=== PATIENT | male | born 1945 | race Caucasian/White ===

== ENCOUNTER 2018-04-07 15:39 | Inpatient (IN) ==
--- NOTE | 2018-04-07 16:05 | Emergency Department Note ---
Disposition Clinical Impression: Esophageal cancer, Hypoxia, Generalized weakness Disposition: Admitted As Inpatient Condition: Fair General Adult HPI - General Chief complaint: ED Shortness of Breath/Dyspnea Stated complaint: CP,ZACK, CA Patient stage 4 Time Seen by Provider: 04/07/18 15:59 - History of Present Illness HPI Narrative: 72-year-old male presents from home for evaluation of lower extremity weakness as well as hypoxia. 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 At baseline, he requires no submental oxygen during the day however does use CPAP at night for his obstructive sleep apnea. This morning while on CPAP, his daughter checked his finger pulse ox which was 88%. He is had progressive weakness for the past 2 weeks such that, at this time, his difficulty in relating and holding his own weight because of his lower extremity weakness. His associated dry cough His spoke with the motor vehicle parts interpreter who recommended presents to emergency department and requested that we contact Dr. Saez typically regardless of who is on-call for oncology. Follows with Dr. Saez with [facility]. PMH: Hypertension, esophageal cancer, DM type 2 S: Positive: As above Negative:, Chills, nausea, vomiting, chest pains, palpitations, diaphoresis, unilateral weakness or confusion Pain Scale: 4 - Related Data Home Medications Medication Instructions Recorded Confirmed Allopurinol [Zyloprim] 100 mg PO DAILY 05/11/16 04/07/18 Aspirin 81 mg PO DAILY 05/11/16 04/07/18 Insulin ASPART [NovoLOG] 20 unit SQ TID 05/11/16 04/07/18 Pravastatin Sodium [Pravachol] 80 mg PO HS 05/11/16 04/07/18 Lisinopril [Zestril] 40 mg PO DAILY 05/09/17 04/07/18 Cetirizine HCl [All Day Allergy] 10 mg PO DAILY 09/16/17 04/07/18 Cholecalciferol (D-3) [Vitamin D] 1,000 unit PO DAILY 09/30/17 04/07/18 Labetalol HCl 300 mg PO BID 09/30/17 04/07/18 Previous Rx's Medication Instructions Recorded Insulin Glargine,Hum.rec.anlog 75 unit SQ HS #5 insuln.pen 10/07/17 [Lantus Solostar] Citalopram Hydrobromide 10 mg PO DAILY #30 tablet 12/27/17 [Citalopram HBr] Sucralfate [Carafate] 1 gm PO QID #120 tablet 01/29/18 Allergies Allergy/AdvReac Type Severity Reaction Status Date / Time No Known Allergies Allergy Verified 11/15/17 09:49 All systems ED: reviewed and negative except as stated. Review of Systems: As Per HPI Past Medical History - Past Medical History Medical history: Reports: cancer, diabetes, hyperlipidemia, hypertension, RA, other Surgical history: Reports: cataract, orthopedic, other, other Psychiatric history: Reports: anxiety, PTSD - Social History Smoking Status: Never smoker Smokeless Tobacco Status: No Alcohol use: Reports: none Drug use: Reports: none Physical Exam Vital Signs Reviewed General: Patient is alert, oriented, and in no acute distress. He is requiring 1 L supplemental oxygen. Head: atraumatic, normocephalic Eye: normal appearance, no scleral icterus, no conjunctival injection ENT: mucous membranes moist, normal external ear exam Neck: normal inspection, trachea midline, full ROM Chest: normal inspection, symmetric chest rise Respiratory: Good respiratory effort. Bilateral breath sounds are clear without wheezing, crackles, or rhonchi. Cardiovascular: Regular rate and rhythm. No clicks, rubs, gallops, or murmors. Normal heart sounds. Abdomen: Bowel sounds present normoactive x-4 quadrants. Abdomen is soft, nondistended, and nontender. No guarding or rebound. No organomegaly noted. Musculoskeletal: Spontaneously moving all extremities. Skin: warm, dry, intact. Neuro: Alert and oriented x4. Sensation light touch intact and equal bilateral lower extremities. Strength 5/5 in bilateral lower extremities. Psych: Patient's affect is appropriate for situation. Course Course Narrative: Concern that his weakness is secondary to his hypoxia which is secondary to his metastatic esophageal cancer. Chest x-ray and electrolytes as well as EKG and troponin. Chest x-ray appears nonfocal. CT chest for greater resolution and more definitive information. EKG dated 04/07/18 at 15:56 interpreted as sinus rhythm with a rate of 59. PO2 20, QTC 478. Left axis. Anterior fascicular block. T-wave inversions in precordial leads which are new from comparison EKG. Otherwise nonspecific ST-T changes. Compared to previous EKG dated 05/10/2016 showing new onset of T-wave inversion. CT chest concerning for both increasing metastasis as well as bilateral pneumonia. Will begin empiric antibiotic of headache and Zosyn. Cultures drawn. I discussed the above with the patient and his at bedside. They are agreeable to admission for continued pulmonary vibration management. I discussed the above with agents oncologist, Dr. Saez, as well as the on-call oncologist, Dr. Hsieh. Dr. Hsieh to see the patient on oncologic consultation. I discussed the above with the admitting hospitalist. He agrees to accept the patient for continued evaluation and management with oncology following. Chest X-Ray 04/07/18 16:13 IMPRESSION: Multifocal airspace opacities with probable small bilateral pleural effusions. Findings are suspicious for pneumonia, however edema could be a possibility. D/ / 04/07/2018 16:54:45 Lilia Armenta MD / huan Interpreting Provider: Lilia Armenta MD Chest CT 04/07/18 16:42 IMPRESSION: 1. Worsening in diffuse pulmonary metastases with innumerable small pulmonary nodules scattered throughout bilateral lungs. 2. Ground-glass and consolidative opacities in the right upper lobe may represent superimposed pneumonia. 3. Moderate-sized bilateral pleural effusions with associated airspace disease. 4. Nonspecific inflammatory changes surround the GE junction possibly related to reflux. D/ / Zeus Boyer / Zeus Boyer Interpreting Provider: Zeus Boyer Vital Signs Temperature 97.6 F 04/07/18 15:44 Pulse Rate 60 04/07/18 15:44 Respiratory Rate 24 04/07/18 15:44 Blood Pressure 136/77 04/07/18 15:44 O2 Sat by Pulse Oximetry 93 04/07/18 15:44 Temperature 98.4 F 04/07/18 23:38 Pulse Rate 70 04/07/18 23:38 Respiratory Rate 18 04/07/18 23:38 Blood Pressure 176/78 04/07/18 23:38 O2 Sat by Pulse Oximetry 92 04/07/18 23:38 Oxygen Delivery Oxygen Delivery Nasal Cannula Medical Decision Making - Lab Data Result diagrams: 04/07/18 17:10 04/07/18 17:10 Lab Results 04/07/18 04/07/18 04/07/18 Range/Units 16:57 17:10 17:10 WBC 7.9 (4.3-11.1) K/mcL RBC 4.29 (4.19-5.50) M/mcL Hgb 12.6 L (12.9-16.9) g/dL Hct 36.8 L (37.5-50.1) % MCV 85.8 (83.0-100.0) fL MCH 29.4 (28.0-33.3) pg MCHC 34.2 (31.6-35.5) g/dL RDW 12.6 (11.5-14.5) % Plt Count 200 (140-400) K/mcL MPV 9.8 (9.4-12.4) fL Immature Gran % 0.5 (0-4) % Seg Neutrophils % 65.8 % Lymphocytes % 17.8 % Monocytes % 12.2 % Eosinophils % 3.4 % Basophils % 0.3 % Neutrophils # 5.2 (1.6-8.9) K/mcL Lymphocytes # 1.4 (0.6-4.6) K/mcL Monocytes # 1.0 (0.0-1.3) K/mcL Eosinophils # 0.3 (0.0-0.6) K/mcL Basophils # 0.0 (0.0-0.2) K/mcL Sodium 127 L (136-145) mEq/L Potassium 4.6 (3.5-5.1) mEq/L Chloride 95 L (98-107) mEq/L Carbon Dioxide 26 (23-29) mEq/L BUN 24 H (8-23) mg/dL Creatinine 1.10 (0.70-1.30) mg/dL Est GFR ( Amer) > 60 (> 60) Est GFR (Non-Af Amer) > 60 (> 60) BUN/Creatinine Ratio 22 (6-26) Glucose 495 H (70-105) mg/dL Calculated Osmolality 290 (280-300) Calcium 9.1 (8.6-10.3) mg/dL Magnesium 1.6 (1.6-2.6) mg/dL Troponin I < 0.03 (< 0.04) ng/mL B-Natriuretic Peptide (Less than 100) pg/mL Urine Color Dark Yellow (Yellow) Urine Clarity Clear (Clear) Urine pH 5.5 (5.0-8.0) pH Units Ur Specific [place] 1.026 H (1.010-1.025) Urine Protein >=300 H (Neg-Trace) mg/dL Urine Glucose (UA) >=1000 H (Normal) mg/dL Urine Ketones Trace H (Negative) mg/dL Urine Blood Negative (Negative) Urine Nitrite Negative (Negative) Urine Bilirubin Small H (Negative) Urine Urobilinogen Normal (Normal) mg/dL Ur Leukocyte Esterase Negative (Negative) Urine Microscopic RBC 5-15 H (0-3) per hpf Urine Microscopic WBC 15-30 H (0-3) per hpf Ur Squamous Epith Cells Many H (None-Few) per lpf Urine Bacteria None Seen (None-Few) per hpf Hyaline Casts Moderate H (None-Few) per lpf Ur Culture Indicated? NO (NO) 04/07/18 Range/Units 17:10 WBC (4.3-11.1) K/mcL RBC (4.19-5.50) M/mcL Hgb (12.9-16.9) g/dL Hct (37.5-50.1) % MCV (83.0-100.0) fL MCH (28.0-33.3) pg MCHC (31.6-35.5) g/dL RDW (11.5-14.5) % Plt Count (140-400) K/mcL MPV (9.4-12.4) fL Immature Gran % (0-4) % Seg Neutrophils % % Lymphocytes % % Monocytes % % Eosinophils % % Basophils % % Neutrophils # (1.6-8.9) K/mcL Lymphocytes # (0.6-4.6) K/mcL Monocytes # (0.0-1.3) K/mcL Eosinophils # (0.0-0.6) K/mcL Basophils # (0.0-0.2) K/mcL Sodium (136-145) mEq/L Potassium (3.5-5.1) mEq/L Chloride (98-107) mEq/L Carbon Dioxide (23-29) mEq/L BUN (8-23) mg/dL Creatinine (0.70-1.30) mg/dL Est GFR ( Amer) (> 60) Est GFR (Non-Af Amer) (> 60) BUN/Creatinine Ratio (6-26) Glucose (70-105) mg/dL Calculated Osmolality (280-300) Calcium (8.6-10.3) mg/dL Magnesium (1.6-2.6) mg/dL Troponin I (< 0.04) ng/mL B-Natriuretic Peptide 45 (Less than 100) pg/mL Urine Color (Yellow) Urine Clarity (Clear) Urine pH (5.0-8.0) pH Units Ur Specific [place] (1.010-1.025) Urine Protein (Neg-Trace) mg/dL Urine Glucose (UA) (Normal) mg/dL Urine Ketones (Negative) mg/dL Urine Blood (Negative) Urine Nitrite (Negative) Urine Bilirubin (Negative) Urine Urobilinogen (Normal) mg/dL Ur Leukocyte Esterase (Negative) Urine Microscopic RBC (0-3) per hpf Urine Microscopic WBC (0-3) per hpf Ur Squamous Epith Cells (None-Few) per lpf Urine Bacteria (None-Few) per hpf Hyaline Casts (None-Few) per lpf Ur Culture Indicated? (NO)
[2018-04-07] MEDS ORDERED: Lidocaine OINT 35.44 GM TUBE TP ONE (16:16)
--- NOTE | 2018-04-07 16:17 | Emergency Department Note ---
Disposition Clinical Impression: Esophageal cancer, Hypoxia, Generalized weakness Disposition: Admitted As Inpatient Forms: ED Satisfaction Letter General Adult HPI - General Chief complaint: ED Shortness of Breath/Dyspnea Stated complaint: CP,ZACK, CA Patient stage 4 Time Seen by Provider: 04/07/18 15:59 Source: patient, family Limitations: no limitations - History of Present Illness Pain Scale: 4 - Related Data Home Medications Medication Instructions Recorded Confirmed Allopurinol [Zyloprim] 100 mg PO DAILY 05/11/16 03/07/18 Aspirin 81 mg PO DAILY 05/11/16 03/07/18 Insulin ASPART [NovoLOG] 20 unit SQ TID 05/11/16 03/07/18 Morris-3/Dha/Epa/Fish Oil [Fish Oil 1,000 mg PO DAILY 05/11/16 03/07/18 1,000 mg Softgel] Pravastatin Sodium [Pravachol] 80 mg PO HS 05/11/16 03/07/18 Lisinopril [Zestril] 40 mg PO DAILY 05/09/17 03/07/18 Cetirizine HCl [All Day Allergy] 10 mg PO DAILY 09/16/17 03/07/18 Fluticasone Propionate Nasal 1 spr NS DAILY 09/16/17 03/07/18 [Flonase] Cholecalciferol (D-3) [Vitamin D] 1,000 unit PO DAILY 09/30/17 03/07/18 Labetalol HCl 300 mg PO BID 09/30/17 03/07/18 Metformin HCl [Glucophage] 500 mg PO BID 09/30/17 03/07/18 DiphenhydraMINE [Benadryl] 25 mg PO HS 10/18/17 03/07/18 Previous Rx's Medication Instructions Recorded Insulin Glargine,Hum.rec.anlog 75 unit SQ HS #5 insuln.pen 10/07/17 [Lantus Solostar] Lidocaine/Prilocaine [Emla] 1 appl TP DAILY #30 gm 10/07/17 Promethazine [Phenergan] 25 mg PO Q6HR PRN #30 tablet 10/07/17 Magic Mouthwash [Magic Mouthwash 10 ml PO QID PRN #240 ml 11/01/17 BLM] Citalopram Hydrobromide 10 mg PO DAILY #30 tablet 12/27/17 [Citalopram HBr] Dicyclomine [Bentyl] 10 mg PO TID PRN #30 capsule 12/27/17 Sucralfate [Carafate] 1 gm PO QID #120 tablet 01/29/18 OxyCODONE Immed Rel [Roxicodone 5 5 mg PO Q6HR PRN 7 Days #28 tablet 03/10/18 MG] Sucralfate [Carafate] 1 gm PO QIDAC PRN #120 tablet 03/10/18 Allergies Allergy/AdvReac Type Severity Reaction Status Date / Time No Known Allergies Allergy Verified 11/15/17 09:49 Past Medical History - Past Medical History Medical history: Reports: cancer, diabetes, hyperlipidemia, hypertension, RA, other Surgical history: Reports: cataract, orthopedic, other, other Psychiatric history: Reports: anxiety, PTSD - Social History Smoking Status: Never smoker Smokeless Tobacco Status: No Alcohol use: Reports: none Drug use: Reports: none Physical Exam - General Limitations: no limitations General appearance: alert, in distress, obese Course Vital Signs Temperature 97.6 F 04/07/18 15:44 Pulse Rate 60 04/07/18 15:44 Respiratory Rate 24 04/07/18 15:44 Blood Pressure 136/77 04/07/18 15:44 O2 Sat by Pulse Oximetry 93 04/07/18 15:44 Temperature 97.6 F 04/07/18 16:06 Pulse Rate 59 04/07/18 16:06 Respiratory Rate 20 04/07/18 16:06 Blood Pressure 147/80 04/07/18 16:06 O2 Sat by Pulse Oximetry 95 04/07/18 16:13 Oxygen Delivery Oxygen Delivery Room Air Critical Care Time Critical Care Time: No Attestation Statement - Attestation Attestation: I examined this patient and my medical decision-making was reviewed with the Resident Physician. I agree with the documented findings, disposition and treatment plan as described except to the extent set forth below. 72-year-old male presents emergency room for generalized weakness. States been declining over the past 2-[address] is unable to even get around well at home. He currently is under treatment for esophageal cancer with lung metastasis. He is getting chemotherapy and radiation therapy. His last treatments were proximal pickup weeks ago. He admits it is getting more and more weak. He does not wear home oxygen. The family states they have been checking his oxygen levels when he wears a CPAP at night and noticed his oxygen levels to be low below 90%. I suspect his been hypoxic for a while and that is contributing to his fatigue and generalized weakness. He does not have a COPD or smoking history. The family and mentioned that he had lung metastasis from the esophageal cancer. That could also be contributing to his hypoxia. Patient will be worked up for generalized weakness in the setting of esophageal cancer. Patient will likely need to be admitted. I feel he will meet criteria for home oxygen.
[2018-04-07] MEDS ORDERED: Isovue-370 500 ML INFUS..BTL IV ONE (16:42)
[2018-04-07 17:07] LABS: Bilirubin,Urine Small (Negative); Blood,Urine Negative (Negative); Clarity,Urine Clear (Clear); Color,Urine Dark Yellow (Yellow); Glucose,Urine (UA) >=1000 mg/dL (Normal); Ketones,Urine Trace mg/dL (Negative); Leukocyte Esterase,Urine Negative (Negative); Nitrite,Urine Negative (Negative); PH,Urine 5.5 pH Units (5.0-8.0); Protein,Urine >=300 mg/dL (Neg-Trace); Specific Gravity,Urine 1.026 (1.010-1.025); Urobilinogen,Urine Normal (Normal)
[2018-04-07 17:09] LABS: Bacteria,Urine None Seen per hpf (None-Few); Hyaline Casts,Urine Moderate per lpf (None-Few); Squamous Epithelial Cell,Urine Many per lpf (None-Few); WBC,Urine 15-30 per hpf (0-3)
[2018-04-07 17:20] LABS: Basophils % 0.3 %; Eosinophils # 0.3 K/mcL (0.0-0.6); Eosinophils % 3.4 %; Hematocrit 36.8 % (37.5-50.1); Hemoglobin 12.6 g/dL (12.9-16.9); Immature Granulocytes % 0.5 % (0-4); Lymphocytes # 1.4 K/mcL (0.6-4.6); Lymphocytes % 17.8 %; Mean Corpuscular HGB Conc 34.2 g/dL (31.6-35.5); Mean Corpuscular Hemoglobin 29.4 pg (28.0-33.3); Mean Corpuscular Volume 85.8 fL (83.0-100.0); Mean Platelet Volume 9.8 fL (9.4-12.4); Monocytes % 12.2 %; Neutrophils # 5.2 K/mcL (1.6-8.9); Platelet Count 200 K/mcL (140-400); Red Blood Count 4.29 M/mcL (4.19-5.50); Red Cell Distribution Width 12.6 % (11.5-14.5); Segmented Neutrophils % 65.8 %
[2018-04-07 17:46] LABS: BUN/Creatinine Ratio 22 (6-26); Blood Urea Nitrogen 24 mg/dL (8-23); Calcium 9.1 mg/dL (8.6-10.3); Carbon Dioxide 26 mEq/L (23-29); Chloride 95 mEq/L (98-107); Glucose 495 mg/dL (70-105); Magnesium 1.6 mg/dL (1.6-2.6); Osmolality,Calculated 290 (280-300); Potassium 4.6 mEq/L (3.5-5.1); Sodium 127 mEq/L (136-145); Troponin I < 0.03 ng/mL (< 0.04); eGFR For Non-African Americans > 60 (> 60)
[2018-04-07] MEDS ORDERED: Cefepime HCl 2,000 MG in 0.9 % Sodium Chloride Mini Bag 100 ML IVPB STA (18:42)
[2018-04-07] MEDS ORDERED: D5% in Water 1,000 ML IVC PRN (22:04)
[2018-04-07] MEDS ORDERED: Dextrose Gel 15 GM/37.5 ML TUBE PO PRN ×2 (22:04)
[2018-04-07] MEDS ORDERED: *HR* Dextrose 50 % in Water (Syg) 50 ML SYRINGE IVP PRN (22:04)
[2018-04-07] MEDS: Insulin LISPRO 300 UNITS/3 ML VIAL SQ SCH (22:37)
[2018-04-08] MEDS ORDERED: Naloxone 0.4 MG/ML INJ IVP PRN (00:47)
[2018-04-08] MEDS ORDERED: *HR* Heparin 5,000 UNIT/ML VIAL IVP PRN ×2 (00:47)
[2018-04-08] MEDS ORDERED: traMADol 50 MG TABLET PO PRN (00:58)
[2018-04-08] MEDS ORDERED: Acetaminophen 325 MG TABLET PO PRN (00:58)
[2018-04-08] MEDS ORDERED: Isovue-370 500 ML INFUS..BTL IV ONE (00:58)
[2018-04-08] MEDS ORDERED: Heparin 25,000 UNIT/500 ML D5W 25,000 UNIT/500 ML BAG IVC SCH (01:00)
[2018-04-08 01:56] LABS: Basophils % 0.4 %; Eosinophils # 0.4 K/mcL (0.0-0.6); Eosinophils % 4.9 %; Hematocrit 35.8 % (37.5-50.1); Hemoglobin 12.4 g/dL (12.9-16.9); Immature Granulocytes % 0.8 % (0-4); Lymphocytes # 1.2 K/mcL (0.6-4.6); Lymphocytes % 14.6 %; Mean Corpuscular HGB Conc 34.6 g/dL (31.6-35.5); Mean Corpuscular Hemoglobin 29.7 pg (28.0-33.3); Mean Corpuscular Volume 85.6 fL (83.0-100.0); Monocytes # 1.1 K/mcL (0.0-1.3); Monocytes % 12.5 %; Neutrophils # 5.7 K/mcL (1.6-8.9); Platelet Count 202 K/mcL (140-400); Red Blood Count 4.18 M/mcL (4.19-5.50); Red Cell Distribution Width 12.5 % (11.5-14.5); Segmented Neutrophils % 66.8 %
--- NOTE | 2018-04-08 01:56 | Internal Med History&Physical ---
Date of Encounter: 04/08/18 Time of Encounter: 00:15 Internal Medicine - H&P: HPI Chief complaint: chest pain; SOB Admitted From: Emergency Dept Plans for Post Hospital Care: Home History of present illness: Mr. Aranda is a 72 year old male [facility] from [facility]. He had been experiencing some shortness of breath and chest pain over the last 2-3 days. According to his and grandson, he has been bedridden with minimal activity the last few days. Additionally, he has been on a long road trip to and from [facility] over the last week. He has an underlying history of esophageal cancer with presumed lung metastases. He developed some chest pain which was sharp in nature. He also has some dyspnea and dry cough. He was returning home with his desmond and they came directly to the ER for evaluation and admission. Workup in ER included CT scan of the chest, which revealed worsening pulmonary metastases and groundglass opacities concerning for pneumonia. He was started on antibiotics and oxygen and admitted to the hospitalist service. Upon my assessment of the patient, he provided the above history to me as detailed above. He still has some sharp chest pain with deep inspiration and a dry cough. Given his underlying malignancy, sedentary activity level latelt, and prolonged road travel very recently, I am very concerned about a possible pulmonary embolus and/or DVT. I called and spoke with the radiologist and reviewed the CT scan with her directly via telephone. The current CT study is not a CTA, and she can only tell if there is any central or saddle PE. She does not see any central PE or saddle PE. She does recommend a repeat CT angiogram for definitive diagnosis. Patient does have some mild cramping in his calves but no calf tenderness, however. Given the high index of suspicion for PE, I am placing him on heparin drip and will order a CTA tomorrow after some IV fluid hydration. Regarding his esophageal cancer, patient has been on 2 different courses of chemotherapy and recently completed radiation therapy. He is due to follow-up with oncology in 2 days. He and his both request oncology consultation. Past Med Surg Social Fam HX - Past Medical History Attestation: Yes The following information was validated with the patient. Source: patient, old records reviewed Medical history: cancer, diabetes, hyperlipidemia, hypertension, RA, other Additional medical history: Stage IV esophageal CA (radiation and chemo) mets to lungs Psychiatric history: anxiety, PTSD - Past Surgical History Surgical History: cataract, orthopedic, other, other Additional surgical history: shoulder, bowel - Social History Smoking Status: Never smoker Smokeless Tobacco Status: No Alcohol use: none Drug use: none Current living situation: Home, With Family Activity Level: Mostly sedentary Recent Out of Country Travel Within the Last 8 Weeks: No - Family History Mother Living Status: Hx Family Cancer: No Father Living Status: Hx Family Cancer: No Internal Medicine - H&P: Meds Allopurinol [Zyloprim] 100 mg PO DAILY 05/11/16 [History] Aspirin 81 mg PO DAILY 05/11/16 [History] Insulin ASPART [NovoLOG] 20 unit SQ TID 05/11/16 [History] Pravastatin Sodium [Pravachol] 80 mg PO HS 05/11/16 [History] Lisinopril [Zestril] 40 mg PO DAILY 05/09/17 [History] Cetirizine HCl [All Day Allergy] 10 mg PO DAILY 09/16/17 [History] Cholecalciferol (D-3) [Vitamin D] 1,000 unit PO DAILY 09/30/17 [History] Labetalol HCl 300 mg PO BID 09/30/17 [History] Insulin Glargine,Hum.rec.anlog [Lantus Solostar] 75 unit SQ HS #5 insuln.pen [Rx] Citalopram Hydrobromide [Citalopram HBr] 10 mg PO DAILY #30 tablet 12/27/17 [Rx] Sucralfate [Carafate] 1 gm PO QID #120 tablet 01/29/18 [Rx] 3 Allergy/AdvReac Type Severity Reaction Status Date / Time No Known Allergies Allergy Verified 11/15/17 09:49 - Constitutional Constitutional: malaise, weakness, no chills, no fever(s), no night sweats - EENT Eyes: no blurry vision, no change in vision Ears: no ear pain, no tinnitus Nose, mouth and throat: no nasal congestion, no sinus pressure, no sore throat - Cardiovascular Cardiovascular ROS IM: chest pain, dyspnea, dyspnea on exertion, no edema, no orthopnea, no paroxysmal nocturnal dyspnea, no syncope - Respiratory Respiratory: cough, dyspnea, dyspnea on exertion, pain with cough, no hemoptysis , no chest congestion, no excessive phlegm production, no change in phlegm color - Gastrointestinal Gastrointestinal: nausea, no abdominal pain, no diarrhea, no hematemesis, no hematochezia, no melena, no vomiting - Genitourinary Genitourinary ROS male: no dysuria, no flank pain, no hematuria - Musculoskeletal Musculoskeletal ROS IM: muscle cramps, no arthralgias, no back pain - Integumentary Integumentary IM: no rash, no jaundice - Neurological Neurological ROS: no dizziness, no focal weakness, no frequent falls, no headache(s) - Psychiatric Psychiatric: no anxiety, no depression - Endocrine Endocrine IM: no polydipsia, no polyuria - Allergic/Immunologic Allergic/Immunologic: GI upset with certain foods - Constitutional Vitals: Temp Pulse Resp BP Pulse Ox 98.4 F 70 18 176/78 92 04/07/18 23:38 04/07/18 23:38 04/07/18 23:38 04/07/18 23:38 04/07/18 23:38 General appearance: Present: cooperative, A&O X 3, pleasant, answers questions appropriately Exam: mildly anxious - Head Head exam: Present: atraumatic, normal inspection - Eye Eye exam: Present: EOMI, PERRL. Absent: scleral icterus Pupils: Present: normal accommodation - ENT ENT exam: Present: mucous membranes dry, normal exam, normal oropharynx - Neck Neck exam general surgery: Present: full ROM, supple. Absent: tenderness, nuchal rigidity, thyromegaly - Respiratory Respiratory exam: Present: decreased breath sounds, rales (crackles, mostly left base; + splinting with deep inspiration), respiratory distress (mild tachypnea), tachypnea (mild). Absent: chest wall tenderness, CTAB, wheezes - Cardiovascular Cardiovascular exam: Present: distant heart sounds, RRR, +S1, +S2. Absent: diastolic murmur, systolic murmur - GI/Abdominal GI/Abdominal exam: Present: distended, normal bowel sounds, soft. Absent: hepatomegaly, splenomegaly, tenderness - Extremities Exam Extremities exam: Present: calf tenderness (cramping/not pain), normal capillary refill, warm, radial pulses palpable and symmetrical. Absent: joint swelling - Back Exam Back exam: Absent: CVA tenderness (L), CVA tenderness (R) - Neurological Exam Neurological exam: Present: alert, CN II-XII intact, oriented X3, no focal deficits - Psychiatric Psychiatric exam: Present: normal affect, normal mood - Skin Skin exam: Present: dry, intact, warm Internal Med - H&P Results - Labs CBC & Chem 7: 04/07/18 17:10 04/07/18 17:10 - Diagnostic Studies Chest x-ray Status: image reviewed by me (multifocal opacities; CT report reviewed as well) - Assessment and plan (1) Multifocal pneumonia Current Visit: Yes Status: Acute Assessment and plan: 1. Blood cultures obtained in ER. 2. Will treat with Vancomycin and Zosyn. 3. Oxygen as needed. 4. Aerosols as needed. (2) Chest pain Current Visit: Yes Status: Acute Assessment and plan: 1. High index of suspicion for PE. 2. Discussed with radiology -- recommend formal CTA when possible. 3. Will place on heparin drip now, order CTA chest and BLE Dopplers for later today. 4. Hydrate with IVF given IV contrast dye. 5. Trend troponins and EKG's. Qualifiers: Chest pain type: pleurodynia Qualified Code(s): R07.81 - Pleurodynia (3) IDDM (insulin dependent diabetes mellitus) Current Visit: Yes Status: Chronic Assessment and plan: 1. Will resume home basal insulin and SSI. 2. Monitor glucose levels and adjust as necessary. (4) Esophageal cancer Current Visit: Yes Status: Chronic Assessment and plan: 1. Consult oncology for assistance, guidance, and per patient/family request. Qualifiers: Malignant neoplasm of esophagus location: unspecified location Qualified Code(s): C15.9 - Malignant neoplasm of esophagus, unspecified (5) DVT prophylaxis Current Visit: Yes Status: Acute Assessment and plan: 1. Heparin drip as above.
[2018-04-08] MEDS: Insulin DETEMIR 100 UNIT/ML X5UNITS SQ SCH ×2 (01:59→21:19)
[2018-04-08 02:02] LABS: INR 1.1; Prothrombin Time 12.3 Seconds (9.4-12.1)
[2018-04-08 02:03] LABS: Heparin anti-factor XA UFH 0.11 IU/mL (0.30-0.70)
[2018-04-08 02:05] LABS: Activated Partial Thrombo Time 30.5 Seconds (26.0-36.0); Alanine Aminotransferase 10 Units/L (7-52); Albumin/Globulin Ratio 1.1 (1.1-2.2); Alkaline Phosphatase 119 Units/L (34-104); Aspartate Amino Transferase 11 Units/L (13-39); BUN/Creatinine Ratio 22 (6-26); Bilirubin,Total 0.5 mg/dL (0.3-1.0); Blood Urea Nitrogen 22 mg/dL (8-23); Calcium 9.2 mg/dL (8.6-10.3); Carbon Dioxide 26 mEq/L (23-29); Chloride 98 mEq/L (98-107); Globulin 2.7 g/dL (2.4-3.5); Glucose 294 mg/dL (70-105); Magnesium 1.6 mg/dL (1.6-2.6); Osmolality,Calculated 284 (280-300); Potassium 4.1 mEq/L (3.5-5.1); Sodium 130 mEq/L (136-145); Total Protein 5.7 g/dL (6.4-8.9); eGFR For Non-African Americans > 60 (> 60)
[2018-04-08] MEDS: 0.9 % Sodium Chloride 1,000 ML IVC SCH ×2 (02:07→11:35)
[2018-04-08] MEDS ORDERED: Albuterol 2.5 MG/3 ML NEBULIZER IH PRN (02:12)
--- NOTE | 2018-04-08 10:58 | Event Note ---
Date of Encounter: 04/08/18 Time of Encounter: 10:45 Seen and assessed. Agree with plan per nightime hospitalist. continue antibiotics for multifocal pneumonia and follow up CT angio to r/o PE. Continue on heparin drip pending CT results. CT angio came back negative for PE, so will discontinue heparin drip
--- NOTE | 2018-04-08 11:11 | Oncology Inp Consult Note ---
<Sathish Palacios - Last Filed: 04/08/18 15:57> Date of Encounter: 04/08/18 Time of Encounter: 11:09 Assessment and Plan (1) Pneumonia Status: Acute Assessment and plan: Patient presents with clinical signs and symptoms of pneumonia. CT of the chest reveals pulmonary consolidation with multiple nodular opacities as well as bilateral pleural effusions. Unclear if this is all related to infection or if there is a component of worsening lung metastases. Agree with antibiotic coverage per primary. CTA performed this morning as well as lower extremity bilateral Dopplers did not show evidence of venous thromboembolic disease so would recommend discontinuing heparin drip. Qualifiers: Pneumonia type: due to unspecified organism Laterality: unspecified laterality Lung location: unspecified part of lung Qualified Code(s): J18.9 - Pneumonia, unspecified organism (2) Esophageal cancer Status: Chronic Assessment and plan: Currently undergoing radiation therapy with palliative intent. He had undergone chemotherapy with FOLFOX from 10/18/17-02/07/18. Patient was scheduled to have outpatient follow-up tomorrow, will be deferred until patient and her shortness acute illness. We will discuss further treatment options and plan patient and . Qualifiers: Malignant neoplasm of esophagus location: unspecified location Qualified Code(s): C15.9 - Malignant neoplasm of esophagus, unspecified - Data of Consult Patient: known to practice within the last 3 years Consult date: 04/08/18 Requesting Physician: Nkechi Jules Primary Care Provider: Sally Johnson MD - Consult Narrative Reason for consult: Metastatic Esophageal Cancer History of present illness: Mr. Aranda is a 72 year old male with history of stage IV esophageal cancer, type 2 diabetes, hypertension presents with shortness of breath and cough. Patient states that his chest pain began suddenly several days ago while in [place]. He reports he also had a cough that was initially dry but is now productive with thick yellow sputum. He reports subjective fevers and chills at home. He denies hemoptysis. He denies leg pain at this time. Patient reports that he underwent radiation therapy for his esophageal cancer and is scheduled for an appointment with radiation oncology and medical oncology tomorrow. 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 Psychiatric history: anxiety, PTSD - Past Surgical History Surgical History: cataract, orthopedic, other, other Additional surgical history: shoulder, bowel - Social History Smoking Status: Never smoker Smokeless Tobacco Status: No Alcohol use: none Drug use: none - Family History Mother Living Status: Hx Family Cancer: No Father Living Status: Hx Family Cancer: No Medications and Allergies Allopurinol [Zyloprim] 100 mg PO DAILY 05/11/16 [History] Aspirin 81 mg PO DAILY 05/11/16 [History] Insulin ASPART [NovoLOG] 20 unit SQ TID 05/11/16 [History] Pravastatin Sodium [Pravachol] 80 mg PO HS 05/11/16 [History] Lisinopril [Zestril] 40 mg PO DAILY 05/09/17 [History] Cetirizine HCl [All Day Allergy] 10 mg PO DAILY 09/16/17 [History] Cholecalciferol (D-3) [Vitamin D] 1,000 unit PO DAILY 09/30/17 [History] Labetalol HCl 300 mg PO BID 09/30/17 [History] Insulin Glargine,Hum.rec.anlog [Lantus Solostar] 75 unit SQ HS #5 insuln.pen [Rx] Citalopram Hydrobromide [Citalopram HBr] 10 mg PO DAILY #30 tablet 12/27/17 [Rx] Sucralfate [Carafate] 1 gm PO QID #120 tablet 01/29/18 [Rx] 3 Allergy/AdvReac Type Severity Reaction Status Date / Time No Known Allergies Allergy Verified 11/15/17 09:49 All systems: reviewed and no additional remarkable complaints except as stated Oncology - Exam - Constitutional Vitals: Temp Pulse Resp BP Pulse Ox 97.8 F 76 14 186/91 94 04/08/18 07:56 04/08/18 07:56 04/08/18 07:56 04/08/18 07:56 04/08/18 07:56 General appearance: no acute distress, obese - Head Head exam: Present: atraumatic, normal inspection, normocephalic - Eye Eye exam: Present: EOMI - ENT ENT exam: Present: mucous membranes dry - Respiratory Respiratory exam: Present: decreased breath sounds - Cardiovascular Cardiovascular exam: Present: RRR. Absent: diastolic murmur, systolic murmur - GI/Abdominal GI/Abdominal exam: Present: hypoactive bowel sounds, soft. Absent: tenderness - Extremities Exam Extremities exam: Absent: calf tenderness - Neurological Exam Neurological exam: Present: alert, oriented X3 - Skin Skin exam: Present: dry, warm Oncology - Results Labs: 3 04/08/18 04/08/18 04/08/18 08:25 07:55 07:23 WBC RBC Hgb Hct MCV MCH MCHC RDW Plt Count MPV Immature Gran % Seg Neutrophils % Lymphocytes % Monocytes % Eosinophils % Basophils % Neutrophils # Lymphocytes # Monocytes # Eosinophils # Basophils # PT INR APTT Heparin Anti-Xa, Unfract 0.40 Sodium Potassium Chloride Carbon Dioxide BUN Creatinine Est GFR ( Amer) Est GFR (Non-Af Amer) BUN/Creatinine Ratio Glucose POC Glucose 235 H Calculated Osmolality Calcium Magnesium Total Bilirubin AST ALT Alkaline Phosphatase Troponin I < 0.03 Serum Total Protein Albumin Globulin Albumin/Globulin Ratio 3 04/08/18 04/08/18 04/08/18 01:23 01:23 01:23 WBC 8.5 RBC 4.18 L Hgb 12.4 L Hct 35.8 L MCV 85.6 MCH 29.7 MCHC 34.6 RDW 12.5 Plt Count 202 MPV 10.0 Immature Gran % 0.8 Seg Neutrophils % 66.8 Lymphocytes % 14.6 Monocytes % 12.5 Eosinophils % 4.9 Basophils % 0.4 Neutrophils # 5.7 Lymphocytes # 1.2 Monocytes # 1.1 Eosinophils # 0.4 Basophils # 0.0 PT 12.3 H INR 1.1 APTT 30.5 Heparin Anti-Xa, Unfract 0.11 L Sodium 130 L Potassium 4.1 Chloride 98 Carbon Dioxide 26 BUN 22 Creatinine 0.98 Est GFR ( Amer) > 60 Est GFR (Non-Af Amer) > 60 BUN/Creatinine Ratio 22 Glucose 294 H POC Glucose Calculated Osmolality 284 Calcium 9.2 Magnesium 1.6 Total Bilirubin 0.5 AST 11 L ALT 10 Alkaline Phosphatase 119 H Troponin I Serum Total Protein 5.7 L Albumin 3.0 L Globulin 2.7 Albumin/Globulin Ratio 1.1 3 04/08/18 04/07/18 01:23 22:17 WBC RBC Hgb Hct MCV MCH MCHC RDW Plt Count MPV Immature Gran % Seg Neutrophils % Lymphocytes % Monocytes % Eosinophils % Basophils % Neutrophils # Lymphocytes # Monocytes # Eosinophils # Basophils # PT INR APTT Heparin Anti-Xa, Unfract Sodium Potassium Chloride Carbon Dioxide BUN Creatinine Est GFR ( Amer) Est GFR (Non-Af Amer) BUN/Creatinine Ratio Glucose POC Glucose 395 H Calculated Osmolality Calcium Magnesium Total Bilirubin AST ALT Alkaline Phosphatase Troponin I < 0.03 Serum Total Protein Albumin Globulin Albumin/Globulin Ratio Consult Discharge Plan - Plan Referrals: Sally Johnson MD [Primary Care Provider] - <Lyndsay Diaz - Last Filed: 04/08/18 16:58> Date of Encounter: 04/08/18 - Data of Consult Requesting Physician: Nkechi Jules Primary Care Provider: Sally Johnson MD - Consult Narrative History of present illness: Patient with esophageal cancer, medical history reviewed, chart review for treatment. Patient underwent chemotherapy and palliative radiation completed end of February 2018. CT imaging findings reviewed discussed with patient possible infectious etiology/inflammation. Clinically patient looks comfortable not in any acute pain on oxygen by mask. Lung nodules also worrisome for progressive disease. He will continue antibiotics, treatment for pneumonia, supportive care in the hospital. I examined this patient and my medical decision-making was reviewed with Dr Sathish Palacios, resident physician. I agree with the documented findings, disposition and treatment plan as described except to the extent set forth below. Oncology - Exam - Constitutional Vitals: Temp Pulse Resp BP Pulse Ox 97.6 F 64 15 193/81 95 04/08/18 15:15 04/08/18 15:15 04/08/18 15:15 04/08/18 15:15 04/08/18 15:15 Oncology - Results Labs: 3 04/08/18 04/08/18 16:05 12:49 POC Glucose 210 H 232 H Inpatient Charges Provider: Dr. Tommie Diaz Consult Charges: [id number]
[2018-04-08] MEDS: Insulin LISPRO 300 UNITS/3 ML VIAL SQ SCH ×4 (11:12→21:18)
[2018-04-08] MEDS: Sucralfate 1 GM TABLET PO SCH ×4 (11:12→21:16)
[2018-04-08] MEDS: Piperacillin/Tazobactam 3.375 GM in 0.9 % Sodium Chloride Mini Bag 100 ML IVPB SCH ×2 (11:33→17:48)
[2018-04-08] MEDS: Aspirin 81 MG TAB.CHEW PO SCH (11:34)
[2018-04-08] MEDS: Cholecalciferol (D-3) 1,000 UNIT TABLET PO SCH (11:34)
[2018-04-08] MEDS: Loratadine 10 MG TABLET PO SCH (11:34)
[2018-04-08] MEDS: Lisinopril 20 MG TABLET PO SCH (11:34)
[2018-04-08] MEDS: *HR* Heparin 5,000 UNIT/ML VIAL SQ SCH (17:47)
[2018-04-08 21:40] LABS: ABG Base Excess 2 mEq/L (-2 to 3); ABG HCO3 27 mEq/L (21-27); ABG Oxygen Saturation 94 % (95-98); ABG PCO2 41 mmHg (35-45); ABG PH 7.43 pH Units (7.32-7.45); ABG PO2 69 mmHg (85-104); ABG TCO2 28 mEq/L (20-26)
[2018-04-08] MEDS ORDERED: Melatonin 3 MG TABLET PO PRN (21:44)
[2018-04-09] MEDS: Piperacillin/Tazobactam 3.375 GM in 0.9 % Sodium Chloride Mini Bag 100 ML IVPB SCH ×4 (00:31→23:24)
[2018-04-09] MEDS: *HR* Heparin 5,000 UNIT/ML VIAL SQ SCH ×2 (05:00→17:15)
[2018-04-09] MEDS: Insulin LISPRO 300 UNITS/3 ML VIAL SQ SCH ×4 (07:51→21:57)
[2018-04-09] MEDS: Sucralfate 1 GM TABLET PO SCH ×4 (07:59→21:45)
[2018-04-09] MEDS: Aspirin 81 MG TAB.CHEW PO SCH (07:59)
[2018-04-09] MEDS: Loratadine 10 MG TABLET PO SCH (08:02)
[2018-04-09] MEDS: Cholecalciferol (D-3) 1,000 UNIT TABLET PO SCH (08:02)
[2018-04-09] MEDS: Lisinopril 20 MG TABLET PO SCH (08:02)
--- NOTE | 2018-04-09 10:17 | Internal Med Progress Note ---
Hospitalist Progress Note - Encounter Date of Encounter: 04/09/18 Time of Encounter: 10:00 - Subjective Interval History: No acute events overnight - Exam Vitals: Temp Pulse Resp BP Pulse Ox 97.5 F L 61 16 186/82 97 04/09/18 07:02 04/09/18 07:02 04/09/18 07:02 04/09/18 07:02 04/09/18 07:02 Exam: Gen - Awake, alert, oriented x 3, no acute distress HEENT - NCAT, PERRLA, EOMI, hearing grossly intact, oropharynx benign CV - RRR, normal S1 and S2, no M/R/G, no BLE edema Resp - Normal WOB, CTAB, no W/R/R GI - Soft, NT/ND, no masses, normal bowel sounds, no HSP Skin - Warm, dry, no rashes/lesions/ulcers Psych - Normal mood and affect, no depression or anxiety - Assessment and Plan (1) Multifocal pneumonia Current Visit: Yes Status: Acute Assessment and Plan: Pt came in with shortness of breath and chest pain. CT chest on admission showed consolidative changes and multifocal airspace opacities. Will continue vanc and zosyn for multifocal pneumonia. Follow up cultures CT chest to r/o PE came back negative and heparin drip has been discontinued (2) Esophageal cancer Current Visit: Yes Status: Chronic Assessment and Plan: Oncology has been consulted. Patient is currently undergoing radiation therapy with palliative intent. He had undergone chemotherapy with FOLFOX from 10/18/17-. Patient was scheduled to have outpatient follow-up today, will be deferred until patient recovers from pneumonia (3) Chest pain Current Visit: Yes Status: Acute Assessment and Plan: Likely pleuritic. CTA chest was negative for PE. Troponins negative x 3 sets (4) IDDM (insulin dependent diabetes mellitus) Current Visit: Yes Status: Chronic Assessment and Plan: 1. Will resume home basal insulin and SSI. 2. Monitor glucose levels and adjust as necessary. (5) DVT prophylaxis Current Visit: Yes Status: Acute Assessment and Plan: Heparin sc - Time Spent with Patient Total time spent is greater than 50% in coordination of care (as documented) at patient's floor/unit and/or counseling patient: Internal Medicine: Result - Labs CBC & Chem 7: 04/08/18 01:23 04/08/18 01:23 - ABG Interpretation ABG results: ABG ABG pH 7.43 pH Units (7.32-7.45) 04/08/18 21:32 ABG pCO2 41 mmHg (35-45) 04/08/18 21:32 ABG pO2 69 mmHg (85-104) L 04/08/18 21:32 ABG O2 Saturation 94 % (95-98) L 04/08/18 21:32 PT/INR, D-dimer PT 12.3 Seconds (9.4-12.1) H 04/08/18 01:23 Consult Discharge Plan - Plan Referrals: Sally Johnson MD [Primary Care Provider] - (2) Esophageal cancer Qualifiers: Malignant neoplasm of esophagus location: unspecified location Qualified Code (s): C15.9 - Malignant neoplasm of esophagus, unspecified (3) Chest pain Qualifiers: Chest pain type: pleurodynia Qualified Code(s): R07.81 - Pleurodynia
--- NOTE | 2018-04-09 14:18 | Oncology Inp Progress Note ---
<Sathish Palacios - Last Filed: 04/09/18 18:05> Date of Encounter: 04/09/18 Time of Encounter: 14:17 (1) Pneumonia Current Visit: Yes Status: Acute Assessment and plan: Patient presents with clinical signs and symptoms of pneumonia. CT of the chest reveals pulmonary consolidation with multiple nodular opacities as well as bilateral pleural effusions. Unclear if this is all related to infection or if there is a component of worsening lung metastases, component of radiation pneumonitis is also considered. Agree with antibiotic coverage per primary. CTA performed this morning as well as lower extremity bilateral Dopplers did not show evidence of venous thromboembolic disease so would recommend discontinuing heparin drip. Consider diagnostic thoracentesis for evaluation of the patient's pleural effusions. Will start prednisone 60mg daily Qualifiers: Pneumonia type: due to unspecified organism Laterality: unspecified laterality Lung location: unspecified part of lung Qualified Code(s): J18.9 - Pneumonia, unspecified organism (2) Esophageal cancer Current Visit: Yes Status: Chronic Assessment and plan: Currently undergoing radiation therapy with palliative intent. He had undergone chemotherapy with FOLFOX from 10/18/17-02/07/18. We will discuss further treatment options and plan with patient and . Qualifiers: Malignant neoplasm of esophagus location: unspecified location Qualified Code(s): C15.9 - Malignant neoplasm of esophagus, unspecified Oncology: Subj Interval history: Patient seen and examined at bedside. Patient states that he feels about the same. He reports appearing fatigued. He reports continued cough and mild shortness of breath. He denies fever. - Constitutional Vitals: Vital Signs Temp Pulse Resp BP Pulse Ox 04/09/18 10:53 97.6 F 54 80 165/78 95 04/09/18 07:02 97.5 F L 61 16 186/82 97 04/09/18 03:43 97.9 F 59 16 169/78 97 04/09/18 03:40 21 152/78 95 04/09/18 00:47 21 152/78 95 04/09/18 00:00 23 152/78 94 04/08/18 23:46 97.6 F 66 16 152/78 94 04/08/18 21:00 95 04/08/18 18:53 98.5 F 71 17 154/79 95 04/08/18 15:15 97.6 F 64 15 193/81 95 Intake and Output 04/08/18 04/09/18 04/09/18 23:59 07:59 15:59 Intake Total 200 / 200 350 / 350 Output Total 300 / 300 0 / 0 Balance -100 / -100 350 / 350 Intake: IV Fluids 100 / 100 350 / 350 Zosyn 3.375 GM In 0.9 % Sodium 100 / 100 100 / 100 Chloride (Mini-Bag +) 100 ML @ 25 mls/hr IVPB Q8HR [facility] Rx#: [id number] Vancocin 1,250 MG In 0.9 % 250 / 250 Sodium Chloride 250 ML @ 167 mls/hr IVPB Q12H [facility] Rx#: [id number] Oral 100 / 100 0 / 0 Output: Urine 300 / 300 0 / 0 Other: Meal Dinner Percent of Meal Consumed 0% Weight 116.9 kg 116.9 kg Blood Glucose* 175 76 86 Patient Weight 04/09/18 23:59 Weight 116.9 kg General appearance: no acute distress - Respiratory Respiratory exam: Present: decreased breath sounds, rhonchi (bilateral) - Cardiovascular Cardiovascular exam: Present: RRR. Absent: tachycardia - GI/Abdominal GI/Abdominal exam: Present: soft. Absent: tenderness - Extremities Exam Extremities exam: Absent: calf tenderness Oncology: Obj Data - Labs CBC & Chem 7: 04/08/18 01:23 04/08/18 01:23 Labs: Laboratory Results - last 24 hr 04/08/18 04/08/18 04/08/18 16:05 20:00 21:32 Sample Site L Radial ABG pH 7.43 ABG pCO2 41 ABG pO2 69 L ABG HCO3 27 ABG Total CO2 28 H ABG O2 Saturation 94 L ABG Base Excess 2 David Test Positive O2 Delivery Device Cannula Inspired O2 28.0 POC Glucose 210 H 175 H Vancomycin Trough 04/09/18 04:00 Sample Site ABG pH ABG pCO2 ABG pO2 ABG HCO3 ABG Total CO2 ABG O2 Saturation ABG Base Excess David Test O2 Delivery Device Inspired O2 POC Glucose Vancomycin Trough 18 H - ABG Interpretation ABG results: ABG ABG pH 7.43 pH Units (7.32-7.45) 04/08/18 21:32 ABG pCO2 41 mmHg (35-45) 04/08/18 21:32 ABG pO2 69 mmHg (85-104) L 04/08/18 21:32 ABG O2 Saturation 94 % (95-98) L 04/08/18 21:32 PT/INR, D-dimer PT 12.3 Seconds (9.4-12.1) H 04/08/18 01:23 Consult Discharge Plan - Plan Referrals: Sally Johnson MD [Primary Care Provider] - <Abdi Saez S - Last Filed: 04/09/18 22:36> Date of Encounter: 04/09/18 - Constitutional Vitals: Vital Signs Temp Pulse Resp BP Pulse Ox 04/09/18 19:20 98.0 F 68 15 170/80 94 04/09/18 16:05 97.4 F L 63 22 183/84 96 04/09/18 10:53 97.6 F 54 80 165/78 95 04/09/18 07:02 97.5 F L 61 16 186/82 97 04/09/18 03:43 97.9 F 59 16 169/78 97 04/09/18 03:40 21 152/78 95 04/09/18 00:47 21 152/78 95 04/09/18 00:00 23 152/78 94 04/08/18 23:46 97.6 F 66 16 152/78 94 Intake and Output 04/09/18 04/09/18 04/10/18 08:59 16:59 00:59 Intake Total 100 / 100 100 / 100 400 / 400 Output Total 0 / 0 625 / 625 Balance 100 / 100 100 / 100 -225 / -225 Intake: IV Fluids 100 / 100 100 / 100 350 / 350 Zosyn 3.375 GM In 0.9 % Sodium 100 / 100 100 / 100 100 / 100 Chloride (Mini-Bag +) 100 ML @ 25 mls/hr IVPB Q8HR [facility] Rx#: [id number] Vancocin 1,250 MG In 0.9 % 250 / 250 Sodium Chloride 250 ML @ 167 mls/hr IVPB Q12H [facility] Rx#: [id number] Oral 0 / 0 50 / 50 Output: Urine 0 / 0 625 / 625 Other: Blood Glucose* 76 115 119 Oncology: Obj Data - Labs CBC & Chem 7: 04/08/18 01:23 04/08/18 01:23 Labs: Laboratory Results - last 24 hr 04/09/18 04/09/18 04/09/18 04:00 07:12 10:57 POC Glucose 76 86 Vancomycin Trough 18 H - ABG Interpretation ABG results: ABG ABG pH 7.43 pH Units (7.32-7.45) 04/08/18 21:32 ABG pCO2 41 mmHg (35-45) 04/08/18 21:32 ABG pO2 69 mmHg (85-104) L 04/08/18 21:32 ABG O2 Saturation 94 % (95-98) L 04/08/18 21:32 PT/INR, D-dimer PT 12.3 Seconds (9.4-12.1) H 04/08/18 01:23 Inpatient Charges Provider: Dr. Tommie Saez Follow Up: [id number] - Attending Attestation I examined this patient and my medical decision-making was reviewed with the resident. I agree with the documented findings, disposition and treatment plan as described except to the extent set forth below. Mr. Aranda is well known to me and is currently convalescing from recent palliative esophageal radiotherapy. He has been admitted with hypoxia and SOB with CT scan revealing pulmonary infiltrates and bilateral effusions. Lung nodules have progressed in size and number. Clinically, there are three potential processes: pneumonia, radiation pneumonitis or lymphangetic spread of his cancer. I d/w family today. Please continue abx per primary team, and I have added prednisone if radiation pneumonitis (timing is a bit early). If he does not improve, likely issues are secondary to cancer and further discussion will be necessary. Would consider repeat CXR on Saturday.
[2018-04-09] MEDS: predniSONE 20 MG TABLET PO SCH (18:33)
[2018-04-09] MEDS: Mirtazapine 15 MG TABLET PO SCH (21:45)
[2018-04-09] MEDS: Insulin DETEMIR 100 UNIT/ML X5UNITS SQ SCH (21:47)
[2018-04-10 04:40] LABS: Basophils % 0.1 %; Eosinophils % 0.1 %; Immature Granulocytes % 0.8 % (0-4); Lymphocytes % 12.6 %; Mean Corpuscular HGB Conc 34.3 g/dL (31.6-35.5); Mean Corpuscular Hemoglobin 29.2 pg (28.0-33.3); Mean Corpuscular Volume 85.2 fL (83.0-100.0); Mean Platelet Volume 9.9 fL (9.4-12.4); Monocytes # 0.2 K/mcL (0.0-1.3); Monocytes % 2.4 %; Neutrophils # 6.3 K/mcL (1.6-8.9); Platelet Count 218 K/mcL (140-400); Red Blood Count 4.11 M/mcL (4.19-5.50); Red Cell Distribution Width 12.6 % (11.5-14.5)
[2018-04-10 05:02] LABS: BUN/Creatinine Ratio 21 (6-26); Blood Urea Nitrogen 18 mg/dL (8-23); Carbon Dioxide 24 mEq/L (23-29); Chloride 103 mEq/L (98-107); Glucose 186 mg/dL (70-105); Magnesium 1.7 mg/dL (1.6-2.6); Osmolality,Calculated 285 (280-300); Potassium 4.3 mEq/L (3.5-5.1); Sodium 134 mEq/L (136-145); eGFR For Non-African Americans > 60 (> 60)
[2018-04-10] MEDS: *HR* Heparin 5,000 UNIT/ML VIAL SQ SCH ×2 (05:05→17:03)
--- NOTE | 2018-04-10 08:04 | Internal Med Progress Note ---
Hospitalist Progress Note - Encounter Date of Encounter: 04/10/18 Time of Encounter: 08:00 - Subjective Interval History: No acute events overnight - Exam Vitals: Temp Pulse Resp BP Pulse Ox 97.5 F L 68 20 176/81 95 04/10/18 07:22 04/10/18 07:22 04/10/18 07:22 04/10/18 07:22 04/10/18 07:22 Exam: Gen - Awake, alert, oriented x 3, no acute distress HEENT - NCAT, PERRLA, EOMI, hearing grossly intact, oropharynx benign CV - RRR, normal S1 and S2, no M/R/G, no BLE edema Resp - Normal WOB, CTAB, no W/R/R GI - Soft, NT/ND, no masses, normal bowel sounds Skin - Warm, dry, no rashes/lesions/ulcers Psych - Normal mood and affect, no depression or anxiety - Assessment and Plan (1) Multifocal pneumonia Current Visit: Yes Status: Acute Assessment and Plan: Pt came in with shortness of breath and chest pain. CT chest on admission showed consolidative changes and multifocal airspace opacities. Will continue vanc and zosyn for multifocal pneumonia. Follow up cultures CT chest to r/o PE came back negative and heparin drip has been discontinued 04/10. Noted bilateral pleural effusion on CT chest. Pt still has SOB. Will obtain 2D echo to evaluate cardiac function, and obtain IR guided thoracentesis for bilateral pleural effusions which may be secondary to malignancy vs infection (2) Esophageal cancer Current Visit: Yes Status: Chronic Assessment and Plan: Oncology has been consulted. Patient is currently undergoing radiation therapy with palliative intent. He had undergone chemotherapy with FOLFOX from 10/18/17-. Patient was scheduled to have outpatient follow-up today, will be deferred until patient recovers from pneumonia. Oncology following (3) Chest pain Current Visit: Yes Status: Acute Assessment and Plan: Likely pleuritic. CTA chest was negative for PE. Troponins negative x 3 sets (4) IDDM (insulin dependent diabetes mellitus) Current Visit: Yes Status: Chronic Assessment and Plan: 1. Will resume home basal insulin and SSI. 2. Monitor glucose levels and adjust as necessary. (5) DVT prophylaxis Current Visit: Yes Status: Acute Assessment and Plan: Heparin sc - Time Spent with Patient Total time spent is greater than 50% in coordination of care (as documented) at patient's floor/unit and/or counseling patient: Internal Medicine: Result - Labs CBC & Chem 7: 04/10/18 04:15 04/10/18 04:15 Labs: Short CBC 04/10/18 Range/Units 04:15 WBC 7.5 (4.3-11.1) K/mcL Hgb 12.0 L (12.9-16.9) g/dL Hct 35.0 L (37.5-50.1) % Plt Count 218 (140-400) K/mcL Neutrophils # 6.3 (1.6-8.9) K/mcL BMP 04/10/18 04:15 Sodium 134 L Potassium 4.3 Chloride 103 Carbon Dioxide 24 BUN 18 Creatinine 0.85 Glucose 186 H Calcium 9.0 - ABG Interpretation ABG results: ABG ABG pH 7.43 pH Units (7.32-7.45) 04/08/18 21:32 ABG pCO2 41 mmHg (35-45) 04/08/18 21:32 ABG pO2 69 mmHg (85-104) L 04/08/18 21:32 ABG O2 Saturation 94 % (95-98) L 04/08/18 21:32 PT/INR, D-dimer PT 12.3 Seconds (9.4-12.1) H 04/08/18 01:23 Consult Discharge Plan - Plan Referrals: Sally Johnson MD [Primary Care Provider] - (2) Esophageal cancer Qualifiers: Malignant neoplasm of esophagus location: unspecified location Qualified Code (s): C15.9 - Malignant neoplasm of esophagus, unspecified (3) Chest pain Qualifiers: Chest pain type: pleurodynia Qualified Code(s): R07.81 - Pleurodynia
[2018-04-10] MEDS ORDERED: *HR* LORazepam 0.5 MG TABLET PO PRN (08:30)
[2018-04-10] MEDS ORDERED: Perflutren Lipid Microsphere 1.3 ML in 0.9 % Sodium Chloride 8.7 ML IVP ONE (08:43)
[2018-04-10] MEDS: Cholecalciferol (D-3) 1,000 UNIT TABLET PO SCH (09:52)
[2018-04-10] MEDS: Sucralfate 1 GM TABLET PO SCH ×4 (09:52→20:18)
[2018-04-10] MEDS: Lisinopril 20 MG TABLET PO SCH (09:52)
[2018-04-10] MEDS: predniSONE 20 MG TABLET PO SCH (09:52)
[2018-04-10] MEDS: Loratadine 10 MG TABLET PO SCH (09:52)
[2018-04-10] MEDS: Aspirin 81 MG TAB.CHEW PO SCH (09:52)
[2018-04-10] MEDS: Piperacillin/Tazobactam 3.375 GM in 0.9 % Sodium Chloride Mini Bag 100 ML IVPB SCH ×3 (09:53→23:53)
[2018-04-10] MEDS: Insulin LISPRO 300 UNITS/3 ML VIAL SQ SCH ×4 (09:53→20:36)
--- NOTE | 2018-04-10 10:00 | Oncology Inp Progress Note ---
<Sathish Palacios - Last Filed: 04/10/18 17:22> Date of Encounter: 04/10/18 Time of Encounter: 09:57 (1) Pneumonia Current Visit: Yes Status: Acute Assessment and plan: Overall patient appears to be improving. Continue antibiotics per primary. Prednisone 60 mg daily was initiated yesterday for radiation pneumonitis although this is felt to be less likely. Plan is for thoracentesis today and have added on cytology for fluid Qualifiers: Pneumonia type: due to unspecified organism Laterality: unspecified laterality Lung location: unspecified part of lung Qualified Code(s): J18.9 - Pneumonia, unspecified organism (2) Esophageal cancer Current Visit: Yes Status: Chronic Assessment and plan: Currently undergoing radiation therapy with palliative intent. He had undergone chemotherapy with FOLFOX from 10/18/17-02/07/18. Plan is to treat patients acute illness as discussed above then follow up as an outpatient to discuss further treatment options. Qualifiers: Malignant neoplasm of esophagus location: unspecified location Qualified Code(s): C15.9 - Malignant neoplasm of esophagus, unspecified Oncology: Subj Interval history: Patient seen and examined at bedside. Patient states that he feels much better this morning he is up sitting in the chair. He feels like his breathing is much improved. Denies fever or chills. He reports eating most of his breakfast this morning. - Constitutional Vitals: Vital Signs Temp Pulse Resp BP Pulse Ox 04/10/18 07:22 97.5 F L 68 20 176/81 95 04/10/18 05:10 20 96 04/10/18 04:24 97.7 F 63 16 166/74 96 04/10/18 00:10 97.6 F 60 16 162/72 95 04/09/18 19:20 98.0 F 68 15 170/80 94 04/09/18 16:05 97.4 F L 63 22 183/84 96 04/09/18 10:53 97.6 F 54 80 165/78 95 Intake and Output 04/09/18 04/10/18 04/10/18 23:59 07:59 15:59 Intake Total 400 / 400 350 / 350 120 / 120 Output Total 625 / 625 0 / 0 Balance -225 / -225 350 / 350 120 / 120 Intake: IV Fluids 350 / 350 350 / 350 Zosyn 3.375 GM In 0.9 % Sodium 100 / 100 100 / 100 Chloride (Mini-Bag +) 100 ML @ 25 mls/hr IVPB Q8HR [facility] Rx#: [id number] Vancocin 1,250 MG In 0.9 % 250 / 250 250 / 250 Sodium Chloride 250 ML @ 167 mls/hr IVPB Q12H [facility] Rx#: [id number] Oral 50 / 50 0 / 0 120 / 120 Output: Urine 625 / 625 0 / 0 Other: Meal Breakfast Percent of Meal Consumed 50% Weight 117.1 kg Blood Glucose* 119 189 Patient Weight 04/10/18 23:59 Weight 117.1 kg General appearance: no acute distress - Respiratory Respiratory exam: Present: decreased breath sounds. Absent: rales, rhonchi - Cardiovascular Cardiovascular exam: Present: RRR - Extremities Exam Extremities exam: Absent: pedal edema - Neurological Exam Neurological exam: Present: alert, oriented X3 Oncology: Obj Data - Labs CBC & Chem 7: 04/10/18 04:15 04/10/18 04:15 Labs: Laboratory Results - last 24 hr 04/09/18 04/09/18 04/09/18 07:12 10:57 19:00 WBC RBC Hgb Hct MCV MCH MCHC RDW Plt Count MPV Immature Gran % Seg Neutrophils % Lymphocytes % Monocytes % Eosinophils % Basophils % Neutrophils # Lymphocytes # Monocytes # Eosinophils # Basophils # Sodium Potassium Chloride Carbon Dioxide BUN Creatinine Est GFR ( Amer) Est GFR (Non-Af Amer) BUN/Creatinine Ratio Glucose POC Glucose 76 86 Calculated Osmolality Calcium Phosphorus Magnesium Vancomycin Trough 14 H 04/10/18 04/10/18 04:15 04:15 WBC 7.5 RBC 4.11 L Hgb 12.0 L Hct 35.0 L MCV 85.2 MCH 29.2 MCHC 34.3 RDW 12.6 Plt Count 218 MPV 9.9 Immature Gran % 0.8 Seg Neutrophils % 84.0 Lymphocytes % 12.6 Monocytes % 2.4 Eosinophils % 0.1 Basophils % 0.1 Neutrophils # 6.3 Lymphocytes # 1.0 Monocytes # 0.2 Eosinophils # 0.0 Basophils # 0.0 Sodium 134 L Potassium 4.3 Chloride 103 Carbon Dioxide 24 BUN 18 Creatinine 0.85 Est GFR ( Amer) > 60 Est GFR (Non-Af Amer) > 60 BUN/Creatinine Ratio 21 Glucose 186 H POC Glucose Calculated Osmolality 285 Calcium 9.0 Phosphorus 4.0 Magnesium 1.7 Vancomycin Trough - ABG Interpretation ABG results: ABG ABG pH 7.43 pH Units (7.32-7.45) 04/08/18 21:32 ABG pCO2 41 mmHg (35-45) 04/08/18 21:32 ABG pO2 69 mmHg (85-104) L 04/08/18 21:32 ABG O2 Saturation 94 % (95-98) L 04/08/18 21:32 PT/INR, D-dimer PT 12.3 Seconds (9.4-12.1) H 04/08/18 01:23 Consult Discharge Plan - Plan Referrals: Sally Johnson MD [Primary Care Provider] - <Abdi Saez - Last Filed: 04/10/18 19:07> Date of Encounter: 04/10/18 - Constitutional Vitals: Vital Signs Temp Pulse Resp BP Pulse Ox 04/10/18 18:55 98.3 F 73 16 154/81 98 04/10/18 15:12 97.9 F 73 16 150/66 96 04/10/18 11:32 97.8 F 66 16 164/74 98 04/10/18 07:22 97.5 F L 68 20 176/81 95 04/10/18 05:10 20 96 04/10/18 04:24 97.7 F 63 16 166/74 96 04/10/18 00:10 97.6 F 60 16 162/72 95 04/09/18 19:20 98.0 F 68 15 170/80 94 Intake and Output 04/10/18 04/10/18 04/11/18 08:59 16:59 00:59 Intake Total 350 / 350 580 / 580 240 / 240 Output Total 0 / 0 250 / 250 Balance 350 / 350 580 / 580 -10 / -10 Intake: IV Fluids 350 / 350 100 / 100 Zosyn 3.375 GM In 0.9 % Sodium 100 / 100 100 / 100 Chloride (Mini-Bag +) 100 ML @ 25 mls/hr IVPB Q8HR [facility] Rx#: [id number] Vancocin 1,250 MG In 0.9 % 250 / 250 Sodium Chloride 250 ML @ 167 mls/hr IVPB Q12H [facility] Rx#: [id number] Oral 0 / 0 480 / 480 240 / 240 Output: Urine 0 / 0 250 / 250 Other: Meal Lunch Dinner Percent of Meal Consumed 100% 50% Stool Size Copious Stool Consistency formed Stool Color Brown # Voids 0 # Bowel Movements 1 Blood Glucose* 189 304 Oncology: Obj Data - Labs CBC & Chem 7: 04/10/18 04:15 04/10/18 04:15 Labs: Laboratory Results - last 24 hr 04/09/18 04/09/18 04/09/18 16:47 19:00 19:33 WBC RBC Hgb Hct MCV MCH MCHC RDW Plt Count MPV Immature Gran % Seg Neutrophils % Lymphocytes % Monocytes % Eosinophils % Basophils % Neutrophils # Lymphocytes # Monocytes # Eosinophils # Basophils # Sodium Potassium Chloride Carbon Dioxide BUN Creatinine Est GFR ( Amer) Est GFR (Non-Af Amer) BUN/Creatinine Ratio Glucose POC Glucose 115 H 119 H Calculated Osmolality Calcium Phosphorus Magnesium Fluid Source Fluid Volume Fluid Appearance Fluid RBC Fld Tot Nucleated Cell Fluid Seg Neutrophil % Fld Band Neutrophil % Fluid Lymphocytes % Fluid Monocytes % Fluid Eosinophils % Fluid Basophils % Fluid Other Cells % Pleural Fluid Volume Pleural Appearance Pleural RBC Pleural Tot Nuc Cell Pleural Neutrophils Pleural Band Neuts Pleural Eosinophils Pleural Basophils Pleural Lymphocytes % Pleural Monocytes % Pleural Other Cells % Pleural Total Protein Pleural LDH Pleural Glucose Vancomycin Trough 14 H 04/10/18 04/10/18 04/10/18 04:15 04:15 07:26 WBC 7.5 RBC 4.11 L Hgb 12.0 L Hct 35.0 L MCV 85.2 MCH 29.2 MCHC 34.3 RDW 12.6 Plt Count 218 MPV 9.9 Immature Gran % 0.8 Seg Neutrophils % 84.0 Lymphocytes % 12.6 Monocytes % 2.4 Eosinophils % 0.1 Basophils % 0.1 Neutrophils # 6.3 Lymphocytes # 1.0 Monocytes # 0.2 Eosinophils # 0.0 Basophils # 0.0 Sodium 134 L Potassium 4.3 Chloride 103 Carbon Dioxide 24 BUN 18 Creatinine 0.85 Est GFR ( Amer) > 60 Est GFR (Non-Af Amer) > 60 BUN/Creatinine Ratio 21 Glucose 186 H POC Glucose 189 H Calculated Osmolality 285 Calcium 9.0 Phosphorus 4.0 Magnesium 1.7 Fluid Source Fluid Volume Fluid Appearance Fluid RBC Fld Tot Nucleated Cell Fluid Seg Neutrophil % Fld Band Neutrophil % Fluid Lymphocytes % Fluid Monocytes % Fluid Eosinophils % Fluid Basophils % Fluid Other Cells % Pleural Fluid Volume Pleural Appearance Pleural RBC Pleural Tot Nuc Cell Pleural Neutrophils Pleural Band Neuts Pleural Eosinophils Pleural Basophils Pleural Lymphocytes % Pleural Monocytes % Pleural Other Cells % Pleural Total Protein Pleural LDH Pleural Glucose Vancomycin Trough 04/10/18 04/10/18 04/10/18 11:10 11:10 11:10 WBC RBC Hgb Hct MCV MCH MCHC RDW Plt Count MPV Immature Gran % Seg Neutrophils % Lymphocytes % Monocytes % Eosinophils % Basophils % Neutrophils # Lymphocytes # Monocytes # Eosinophils # Basophils # Sodium Potassium Chloride Carbon Dioxide BUN Creatinine Est GFR ( Amer) Est GFR (Non-Af Amer) BUN/Creatinine Ratio Glucose POC Glucose Calculated Osmolality Calcium Phosphorus Magnesium Fluid Source Fluid Volume Fluid Appearance Fluid RBC Fld Tot Nucleated Cell Fluid Seg Neutrophil % Fld Band Neutrophil % Fluid Lymphocytes % Fluid Monocytes % Fluid Eosinophils % Fluid Basophils % Fluid Other Cells % Pleural Fluid Volume 1000.0 Pleural Appearance Hazy A Pleural RBC 0.031 H Pleural Tot Nuc Cell 199 Pleural Neutrophils 19.0 Pleural Band Neuts Test Not Performed Pleural Eosinophils Test Not Performed Pleural Basophils Test Not Performed Pleural Lymphocytes % 34.0 Pleural Monocytes % Test Not Performed Pleural Other Cells % 47.0 Pleural Total Protein 3.1 3.0 Pleural LDH 87 81 Pleural Glucose 238 237 Vancomycin Trough 04/10/18 04/10/18 04/10/18 11:10 11:29 16:34 WBC RBC Hgb Hct MCV MCH MCHC RDW Plt Count MPV Immature Gran % Seg Neutrophils % Lymphocytes % Monocytes % Eosinophils % Basophils % Neutrophils # Lymphocytes # Monocytes # Eosinophils # Basophils # Sodium Potassium Chloride Carbon Dioxide BUN Creatinine Est GFR ( Amer) Est GFR (Non-Af Amer) BUN/Creatinine Ratio Glucose POC Glucose 248 H 304 H Calculated Osmolality Calcium Phosphorus Magnesium Fluid Source PL Fluid Volume 550 Fluid Appearance Slightly Hazy A Fluid RBC 0.006 Fld Tot Nucleated Cell 127 Fluid Seg Neutrophil % 38.0 Fld Band Neutrophil % 2.0 Fluid Lymphocytes % 52.0 Fluid Monocytes % 4.0 Fluid Eosinophils % Test Not Performed Fluid Basophils % Test Not Performed Fluid Other Cells % 4.0 Pleural Fluid Volume Pleural Appearance Pleural RBC Pleural Tot Nuc Cell Pleural Neutrophils Pleural Band Neuts Pleural Eosinophils Pleural Basophils Pleural Lymphocytes % Pleural Monocytes % Pleural Other Cells % Pleural Total Protein Pleural LDH Pleural Glucose Vancomycin Trough - Impressions Impressions Echocardiogram 04/10/18 07:52 Impressions: LVEF 70%. Normal LV chamber size and function. Moderate concentric left ventricular hypertrophy. Mild left ventricular diastolic dysfunction. Normal right ventricular structure and function. Unable to estimate RVSP due to lack of TR jet. No significant valvular dysfunction. Left Ventricular Wall Motion: Rest Echo Findings All wall segments showed normal motion. Findings: Study Quality * Technically adequate exam. ECG Findings * Normal sinus rhythm. Left Ventricle * LVEF 70%. * Normal LV chamber size and function. * Moderate concentric left ventricular hypertrophy. * Mild left ventricular diastolic dysfunction. Right Ventricle * Normal right ventricular structure and function. Left Atrium * Moderately dilated left atrium. Right Atrium * Moderately dilated right atrium. Aortic Valve * Aortic valve not well visualized. * No aortic regurgitation. * No aortic stenosis. Mitral Valve * Mild mitral annular calcification * No mitral regurgitation. * No mitral stenosis. Tricuspid Valve * Normal tricuspid valve structure and function. * No tricuspid regurgitation. * Unable to estimate RVSP due to lack of TR jet. Pulmonic Valve * Pulmonic valve not well visualized. * No pulmonic regurgitation. Aorta * Normally sized aortic root. Pericardium * The pericardium appears normal. IVC * Normal IVC dimensions and inspiratory collapse. Pulmonary Artery * Normal visualized portions of the main pulmonary artery. Thoracentesis 04/10/18 07:55 IMPRESSION: Successful ultrasound guided left thoracentesis. D/ / Petra Antony MD / Petra Antony MD Interpreting Provider: Petra Antony MD Thoracentesis 04/10/18 07:55 IMPRESSION: Successful ultrasound guided right thoracentesis. D/ / Petra Antony MD / Petra Antony MD Interpreting Provider: Petra Antony MD Chest X-Ray 04/10/18 11:26 IMPRESSION: 1. No pneumothorax following bilateral thoracentesis. 2. Findings typical of mild congestive heart failure. 3. Calcific atherosclerosis aorta. 4. Cardiomegaly. D/ / Harrison Katz / Harrison Katz Interpreting Provider: Harrison Katz - ABG Interpretation ABG results: ABG ABG pH 7.43 pH Units (7.32-7.45) 04/08/18 21:32 ABG pCO2 41 mmHg (35-45) 04/08/18 21:32 ABG pO2 69 mmHg (85-104) L 04/08/18 21:32 ABG O2 Saturation 94 % (95-98) L 04/08/18 21:32 PT/INR, D-dimer PT 12.3 Seconds (9.4-12.1) H 04/08/18 01:23 Inpatient Charges Provider: Dr. Tommie Saez Follow Up: [id number] - Attending Attestation I examined this patient and my medical decision-making was reviewed with the resident. I agree with the documented findings, disposition and treatment plan as described except to the extent set forth below. Mr. Aranda has had a much better today. He ate a good breakfast is morning. Later in the morning, he underwent thoracentesis of both lungs. His breathing has improved, and even improve prior to thoracentesis. He is now breathing, we on nasal cannula and watching TV. He had a good lunch is looking forward to dinner. No fever, chills or symptoms of infection. His is pleased with his progress. We will continue with supportive measures with broad-spectrum antibiotics and steroids.
--- NOTE | 2018-04-10 11:50 | Procedure Note ---
Date of procedure: 04/10/18 Pre-op diagnosis: bilateral pleural effusion Post-op diagnosis: same Procedure: Thoracentesis Date: 04/10/18 Time: 11:10 Indication: bilateral pleural effusions Resident: Dr. Dixie Kaba Attending: Dr. Petra Antony A time-out was completed verifying correct patient, procedure, site, positioning , and special equipment if applicable. A written consent was obtained from the patient after explaining the procedure and its associated risks including, but not limited to bleeding, infection, and pneumothorax. The patient's right and left sides were prepped and draped in a sterile fashion after an appropriate infiltration level was confirmed by ultrasound. The surrounding skin was anesthetized with 1% lidocaine. A finder needle was then used to locate fluid and clear yellow fluid was obtained. A 10-blade scalpel used to make the right and left incisions. The thoracentesis catheter was then threaded without difficulty. The patient had 1,500 mL of clear, yellow fluid remove from the left pleural space and 500mL of clear yellow fluid removed from the right pleural space. Present for the entire procedure was Dr. Antony. A post-procedure chest x-ray was ordered and the fluid will be sent for several studies. The patient tolerated the procedure well and there were no complications. Estimated Blood Loss: 1mL Anesthesia: local Was there an tv production assistant present: Yes Military Administrative Technician: Petra Antony Estimated blood loss (cc): 1 Specimen: Pleural fluid analysis including cytology Condition: stable Disposition: no change
[2018-04-10 14:11] LABS: Source of Body Fluid PL
[2018-04-10 14:47] LABS: RBC,Pleural Fluid 0.031 M/mcL
[2018-04-10 14:54] LABS: Total Protein,Pleural Fluid 3.1 g/dL (No Ref Range)
[2018-04-10 15:38] LABS: Appearance of Pleural Fl Hazy (Clear)
[2018-04-10 15:42] LABS: Appearance of Body Fluid Slightly Hazy (Clear); Volume of Body Fluid 550 mL
[2018-04-10] MEDS: Mirtazapine 15 MG TABLET PO SCH (20:18)
[2018-04-10] MEDS: Insulin DETEMIR 100 UNIT/ML X5UNITS SQ SCH (20:35)
[2018-04-11 04:37] LABS: Basophils % 0.1 %; Hematocrit 33.6 % (37.5-50.1); Hemoglobin 11.5 g/dL (12.9-16.9); Immature Granulocytes % 0.9 % (0-4); Immature Platelets 3.5 % (1.1-6.1); Lymphocytes % 8.1 %; Mean Corpuscular HGB Conc 34.2 g/dL (31.6-35.5); Mean Corpuscular Hemoglobin 29.2 pg (28.0-33.3); Mean Corpuscular Volume 85.3 fL (83.0-100.0); Monocytes # 1.4 K/mcL (0.0-1.3); Monocytes % 11.2 %; Neutrophils # 10.1 K/mcL (1.6-8.9); Platelet Count 238 K/mcL (140-400); Red Blood Count 3.94 M/mcL (4.19-5.50); Red Cell Distribution Width 12.5 % (11.5-14.5); Segmented Neutrophils % 79.7 %
[2018-04-11] MEDS: *HR* Heparin 5,000 UNIT/ML VIAL SQ SCH (06:07)
[2018-04-11] MEDS: Sucralfate 1 GM TABLET PO SCH ×2 (08:03→11:48)
[2018-04-11] MEDS: Aspirin 81 MG TAB.CHEW PO SCH (08:06)
[2018-04-11] MEDS: Lisinopril 20 MG TABLET PO SCH (08:06)
[2018-04-11] MEDS: predniSONE 20 MG TABLET PO SCH (08:06)
[2018-04-11] MEDS: Loratadine 10 MG TABLET PO SCH (08:07)
[2018-04-11] MEDS: Cholecalciferol (D-3) 1,000 UNIT TABLET PO SCH (08:09)
[2018-04-11] MEDS: Piperacillin/Tazobactam 3.375 GM in 0.9 % Sodium Chloride Mini Bag 100 ML IVPB SCH (08:09)
[2018-04-11] MEDS: Insulin LISPRO 300 UNITS/3 ML VIAL SQ SCH ×2 (08:14→12:07)
--- NOTE | 2018-04-11 08:44 | Electrocardiograph Report ---
[place] [id number] Test Date: 2018-04-07 Pat Name: Hu Aranda Department: [id number] Room: [id number] Gender: M Software Administrator: : 1945 Requested By: Claude Fowler Order Number: [id number] Reading MD: Fernando Erwin Measurements Intervals [place] Rate: 59 P: 49 SD: 220 QRS: -58 QRSD: 110 T: 58 QT: 482 QTc: 478 Interpretive Statements SINUS RHYTHM WITH A FIRST DEGREE AV BLOCK LEFT ANTERIOR FASCICULAR BLOCK ANTERIOR MYOCARDIAL INFARCTION, AGE UNDETERMINED Electronically Signed On 04-10-2018 16:31:54 EDT by Fernando Erwin
--- NOTE | 2018-04-11 10:18 | Oncology Inp Progress Note ---
Date of Encounter: 04/11/18 Time of Encounter: 10:15 (1) Pneumonia Status: Acute Assessment and plan: Overall patient appears to be improving. Continue antibiotics per primary. Prednisone 60 mg daily was initiated for possible radiation pneumonitis although this is felt to be less likely. Patient underwent bilateral thoracentesis yesterday and initial fluid analysis revealed a low pH which can be seen in infection as well as malignancy. Fluid culture and cytology pending. Recommend completing a course of antibiotics been following up as an outpatient to review cytology results. Qualifiers: Pneumonia type: due to unspecified organism Laterality: unspecified laterality Lung location: unspecified part of lung Qualified Code(s): J18.9 - Pneumonia, unspecified organism (2) Esophageal cancer Status: Chronic Assessment and plan: Currently undergoing radiation therapy with palliative intent. He had undergone chemotherapy with FOLFOX from 10/18/17-02/07/18. Plan is to treat patients acute illness as discussed above then follow up as an outpatient to discuss further treatment options. Qualifiers: Malignant neoplasm of esophagus location: unspecified location Qualified Code(s): C15.9 - Malignant neoplasm of esophagus, unspecified Oncology: Subj Interval history: Patient seen and examined at bedside. Patient states that he feels good today. He is up sitting on the side of the bed without oxygen and feeling comfortable. He denies fever, chills, pain, shortness of breath, cough. He reports eating a good breakfast and having a strong appetite. - Constitutional Vitals: Vital Signs Temp Pulse Resp BP Pulse Ox 04/11/18 06:51 56 16 161/75 100 04/11/18 03:56 97.4 F L 57 20 163/92 98 04/10/18 23:45 99 F 65 20 156/73 98 04/10/18 18:55 98.3 F 73 16 154/81 98 04/10/18 15:12 97.9 F 73 16 150/66 96 04/10/18 11:32 97.8 F 66 16 164/74 98 Intake and Output 04/10/18 04/11/18 04/11/18 23:59 07:59 15:59 Intake Total 740 / 740 100 / 100 120 / 120 Output Total 430 / 430 Balance 310 / 310 100 / 100 120 / 120 Intake: IV Fluids 350 / 350 100 / 100 Zosyn 3.375 GM In 0.9 % Sodium 100 / 100 100 / 100 Chloride (Mini-Bag +) 100 ML @ 25 mls/hr IVPB Q8HR [facility] Rx#: [id number] Vancocin 1,250 MG In 0.9 % 250 / 250 Sodium Chloride 250 ML @ 167 mls/hr IVPB Q12H [facility] Rx#: [id number] Oral 390 / 390 0 / 0 120 / 120 Output: Urine 430 / 430 Other: Meal Dinner Breakfast Percent of Meal Consumed 50% 100% Stool Size Copious Stool Consistency formed Stool Color Brown # Voids 0 0 # Bowel Movements 1 Weight 115.2 kg Blood Glucose* 389 142 General appearance: no acute distress - Respiratory Respiratory exam: Present: CTAB. Absent: rales, rhonchi - Cardiovascular Cardiovascular exam: Present: RRR. Absent: rubs, systolic murmur - GI/Abdominal GI/Abdominal exam: Present: soft. Absent: tenderness - Extremities Exam Extremities exam: Absent: pedal edema - Neurological Exam Neurological exam: Present: alert, oriented X3 Oncology: Obj Data - Labs CBC & Chem 7: 04/11/18 04:05 04/10/18 04:15 Labs: Laboratory Results - last 24 hr 04/09/18 04/09/18 04/10/18 16:47 19:33 07:26 WBC RBC Hgb Hct MCV MCH MCHC RDW Plt Count MPV Immature Gran % Seg Neutrophils % Lymphocytes % Monocytes % Eosinophils % Basophils % Neutrophils # Lymphocytes # Monocytes # Eosinophils # Basophils # Immature Plt Fraction POC Glucose 115 H 119 H 189 H Lactate Dehydrogenase Fluid Source Fluid Volume Fluid Appearance Fluid RBC Fld Tot Nucleated Cell Fluid Seg Neutrophil % Fld Band Neutrophil % Fluid Lymphocytes % Fluid Monocytes % Fluid Eosinophils % Fluid Basophils % Fluid Other Cells % Pleural Fluid Volume Pleural Appearance Pleural pH Pleural RBC Pleural Tot Nuc Cell Pleural Neutrophils Pleural Band Neuts Pleural Eosinophils Pleural Basophils Pleural Lymphocytes % Pleural Monocytes % Pleural Other Cells % Pleural Total Protein Pleural LDH Pleural Glucose 04/10/18 04/10/18 04/10/18 11:10 11:10 11:10 WBC RBC Hgb Hct MCV MCH MCHC RDW Plt Count MPV Immature Gran % Seg Neutrophils % Lymphocytes % Monocytes % Eosinophils % Basophils % Neutrophils # Lymphocytes # Monocytes # Eosinophils # Basophils # Immature Plt Fraction POC Glucose Lactate Dehydrogenase Fluid Source Fluid Volume Fluid Appearance Fluid RBC Fld Tot Nucleated Cell Fluid Seg Neutrophil % Fld Band Neutrophil % Fluid Lymphocytes % Fluid Monocytes % Fluid Eosinophils % Fluid Basophils % Fluid Other Cells % Pleural Fluid Volume 1000.0 Pleural Appearance Hazy A Pleural pH 6.80 Pleural RBC 0.031 H Pleural Tot Nuc Cell 199 Pleural Neutrophils 19.0 Pleural Band Neuts Test Not Performed Pleural Eosinophils Test Not Performed Pleural Basophils Test Not Performed Pleural Lymphocytes % 34.0 Pleural Monocytes % Test Not Performed Pleural Other Cells % 47.0 Pleural Total Protein 3.1 3.0 Pleural LDH 87 81 Pleural Glucose 238 237 04/10/18 04/10/18 04/10/18 11:10 11:10 11:29 WBC RBC Hgb Hct MCV MCH MCHC RDW Plt Count MPV Immature Gran % Seg Neutrophils % Lymphocytes % Monocytes % Eosinophils % Basophils % Neutrophils # Lymphocytes # Monocytes # Eosinophils # Basophils # Immature Plt Fraction POC Glucose 248 H Lactate Dehydrogenase Fluid Source PL Fluid Volume 550 Fluid Appearance Slightly Hazy A Fluid RBC 0.006 Fld Tot Nucleated Cell 127 Fluid Seg Neutrophil % 38.0 Fld Band Neutrophil % 2.0 Fluid Lymphocytes % 52.0 Fluid Monocytes % 4.0 Fluid Eosinophils % Test Not Performed Fluid Basophils % Test Not Performed Fluid Other Cells % 4.0 Pleural Fluid Volume Pleural Appearance Pleural pH 6.40 Pleural RBC Pleural Tot Nuc Cell Pleural Neutrophils Pleural Band Neuts Pleural Eosinophils Pleural Basophils Pleural Lymphocytes % Pleural Monocytes % Pleural Other Cells % Pleural Total Protein Pleural LDH Pleural Glucose 04/10/18 04/10/18 04/11/18 16:34 20:34 04:05 WBC 12.7 H D RBC 3.94 L Hgb 11.5 L Hct 33.6 L MCV 85.3 MCH 29.2 MCHC 34.2 RDW 12.5 Plt Count 238 MPV 10.0 Immature Gran % 0.9 Seg Neutrophils % 79.7 Lymphocytes % 8.1 Monocytes % 11.2 Eosinophils % 0.0 Basophils % 0.1 Neutrophils # 10.1 H Lymphocytes # 1.0 Monocytes # 1.4 H Eosinophils # 0.0 Basophils # 0.0 Immature Plt Fraction 3.5 POC Glucose 304 H 389 H Lactate Dehydrogenase Fluid Source Fluid Volume Fluid Appearance Fluid RBC Fld Tot Nucleated Cell Fluid Seg Neutrophil % Fld Band Neutrophil % Fluid Lymphocytes % Fluid Monocytes % Fluid Eosinophils % Fluid Basophils % Fluid Other Cells % Pleural Fluid Volume Pleural Appearance Pleural pH Pleural RBC Pleural Tot Nuc Cell Pleural Neutrophils Pleural Band Neuts Pleural Eosinophils Pleural Basophils Pleural Lymphocytes % Pleural Monocytes % Pleural Other Cells % Pleural Total Protein Pleural LDH Pleural Glucose 04/11/18 07:38 WBC RBC Hgb Hct MCV MCH MCHC RDW Plt Count MPV Immature Gran % Seg Neutrophils % Lymphocytes % Monocytes % Eosinophils % Basophils % Neutrophils # Lymphocytes # Monocytes # Eosinophils # Basophils # Immature Plt Fraction POC Glucose Lactate Dehydrogenase 131 L Fluid Source Fluid Volume Fluid Appearance Fluid RBC Fld Tot Nucleated Cell Fluid Seg Neutrophil % Fld Band Neutrophil % Fluid Lymphocytes % Fluid Monocytes % Fluid Eosinophils % Fluid Basophils % Fluid Other Cells % Pleural Fluid Volume Pleural Appearance Pleural pH Pleural RBC Pleural Tot Nuc Cell Pleural Neutrophils Pleural Band Neuts Pleural Eosinophils Pleural Basophils Pleural Lymphocytes % Pleural Monocytes % Pleural Other Cells % Pleural Total Protein Pleural LDH Pleural Glucose - Impressions Impressions Echocardiogram 04/10/18 07:52 Impressions: LVEF 70%. Normal LV chamber size and function. Moderate concentric left ventricular hypertrophy. Mild left ventricular diastolic dysfunction. Normal right ventricular structure and function. Unable to estimate RVSP due to lack of TR jet. No significant valvular dysfunction. Left Ventricular Wall Motion: Rest Echo Findings All wall segments showed normal motion. Findings: Study Quality * Technically adequate exam. ECG Findings * Normal sinus rhythm. Left Ventricle * LVEF 70%. * Normal LV chamber size and function. * Moderate concentric left ventricular hypertrophy. * Mild left ventricular diastolic dysfunction. Right Ventricle * Normal right ventricular structure and function. Left Atrium * Moderately dilated left atrium. Right Atrium * Moderately dilated right atrium. Aortic Valve * Aortic valve not well visualized. * No aortic regurgitation. * No aortic stenosis. Mitral Valve * Mild mitral annular calcification * No mitral regurgitation. * No mitral stenosis. Tricuspid Valve * Normal tricuspid valve structure and function. * No tricuspid regurgitation. * Unable to estimate RVSP due to lack of TR jet. Pulmonic Valve * Pulmonic valve not well visualized. * No pulmonic regurgitation. Aorta * Normally sized aortic root. Pericardium * The pericardium appears normal. IVC * Normal IVC dimensions and inspiratory collapse. Pulmonary Artery * Normal visualized portions of the main pulmonary artery. Thoracentesis 04/10/18 07:55 IMPRESSION: Successful ultrasound guided left thoracentesis. D/ / Petra Antony MD / Petra Antony MD Interpreting Provider: Petra Antony MD Thoracentesis 04/10/18 07:55 IMPRESSION: Successful ultrasound guided right thoracentesis. D/ / Petra Antony MD / Petra Antony MD Interpreting Provider: Petra Antony MD Chest X-Ray 04/10/18 11:26 IMPRESSION: 1. No pneumothorax following bilateral thoracentesis. 2. Findings typical of mild congestive heart failure. 3. Calcific atherosclerosis aorta. 4. Cardiomegaly. D/ / Harrison Katz / Harrison Katz Interpreting Provider: Harrison Katz - ABG Interpretation ABG results: ABG ABG pH 7.43 pH Units (7.32-7.45) 04/08/18 21:32 ABG pCO2 41 mmHg (35-45) 04/08/18 21:32 ABG pO2 69 mmHg (85-104) L 04/08/18 21:32 ABG O2 Saturation 94 % (95-98) L 04/08/18 21:32 PT/INR, D-dimer PT 12.3 Seconds (9.4-12.1) H 04/08/18 01:23 Consult Discharge Plan - Plan Instructions: Pneumonia (DC) Referrals: Alex Buckley MD [Partnered Physician] - (sent a web request the office should call patient at home with appointment date and time) Evelyn Polo CNP [Advanced Practice Nurse] - 04/17/18 9:30 am Prescriptions: levoFLOXacin [Levaquin] 750 mg PO DAILY #5 tablet Mirtazapine [Remeron] 15 mg PO HS #30 tablet predniSONE [PredniSONE] 60 mg PO DAILY #30 tablet
--- NOTE | 2018-04-11 10:31 | Pulmonology Consult Note ---
<TeresajefryAlex prince M - Last Filed: 04/11/18 10:36> Date of Encounter: 04/11/18 Medications and Allergies Allopurinol [Zyloprim] 100 mg PO DAILY 05/11/16 [History] Aspirin 81 mg PO DAILY 05/11/16 [History] Insulin ASPART [NovoLOG] 20 unit SQ TID 05/11/16 [History] Pravastatin Sodium [Pravachol] 80 mg PO HS 05/11/16 [History] Lisinopril [Zestril] 40 mg PO DAILY 05/09/17 [History] Cetirizine HCl [All Day Allergy] 10 mg PO DAILY 09/16/17 [History] Cholecalciferol (D-3) [Vitamin D] 1,000 unit PO DAILY 09/30/17 [History] Labetalol HCl 300 mg PO BID 09/30/17 [History] Insulin Glargine,Hum.rec.anlog [Lantus Solostar] 75 unit SQ HS #5 insuln.pen [Rx] Citalopram Hydrobromide [Citalopram HBr] 10 mg PO DAILY #30 tablet 12/27/17 [Rx] Sucralfate [Carafate] 1 gm PO QID #120 tablet 01/29/18 [Rx] Mirtazapine [Remeron] 15 mg PO HS #30 tablet 04/11/18 [Rx] levoFLOXacin [Levaquin] 750 mg PO DAILY #5 tablet 04/11/18 [Rx] predniSONE [PredniSONE] 60 mg PO DAILY #30 tablet 04/11/18 [Rx] 3 Allergy/AdvReac Type Severity Reaction Status Date / Time No Known Allergies Allergy Verified 11/15/17 09:49 All Systems: The remainder of the systems were reviewed and are negative Physical Examination Vital Signs: Vital Signs, Last 4 Hours Pulse Resp BP Pulse Ox 04/11/18 06:51 56 16 161/75 100 Results - Laboratory Findings CBC and BMP: 04/11/18 04:05 04/10/18 04:15 ABG ABG pH 7.43 pH Units (7.32-7.45) 04/08/18 21:32 ABG pCO2 41 mmHg (35-45) 04/08/18 21:32 ABG pO2 69 mmHg (85-104) L 04/08/18 21:32 ABG O2 Saturation 94 % (95-98) L 04/08/18 21:32 PT/INR, D-dimer PT 12.3 Seconds (9.4-12.1) H 04/08/18 01:23 Abnormal lab findings: Abnormal lab results WBC 12.7 K/mcL (4.3-11.1) H D 04/11/18 04:05 RBC 3.94 M/mcL (4.19-5.50) L 04/11/18 04:05 Hgb 11.5 g/dL (12.9-16.9) L 04/11/18 04:05 Hct 33.6 % (37.5-50.1) L 04/11/18 04:05 Neutrophils # 10.1 K/mcL (1.6-8.9) H 04/11/18 04:05 Monocytes # 1.4 K/mcL (0.0-1.3) H 04/11/18 04:05 PT 12.3 Seconds (9.4-12.1) H 04/08/18 01:23 ABG pO2 69 mmHg (85-104) L 04/08/18 21:32 ABG Total CO2 28 mEq/L (20-26) H 04/08/18 21:32 ABG O2 Saturation 94 % (95-98) L 04/08/18 21:32 Sodium 134 mEq/L (136-145) L 04/10/18 04:15 Glucose 186 mg/dL (70-105) H 04/10/18 04:15 POC Glucose 389 mg/dL (70-99) H 04/10/18 20:34 AST 11 Units/L (13-39) L 04/08/18 01:23 Alkaline Phosphatase 119 Units/L (34-104) H 04/08/18 01:23 Lactate Dehydrogenase 131 Units/L (140-271) L 04/11/18 07:38 Serum Total Protein 5.7 g/dL (6.4-8.9) L 04/08/18 01:23 Albumin 3.0 g/dL (3.5-5.7) L 04/08/18 01:23 Ur Specific Blanchard 1.026 (1.010-1.025) H 04/07/18 16:57 Urine Protein >=300 mg/dL (Neg-Trace) H 04/07/18 16:57 Urine Glucose (UA) >=1000 mg/dL (Normal) H 04/07/18 16:57 Urine Ketones Trace mg/dL (Negative) H 04/07/18 16:57 Urine Bilirubin Small (Negative) H 04/07/18 16:57 Urine Microscopic RBC 5-15 per hpf (0-3) H 04/07/18 16:57 Urine Microscopic WBC 15-30 per hpf (0-3) H 04/07/18 16:57 Ur Squamous Epith Cells Many per lpf (None-Few) H 04/07/18 16:57 Hyaline Casts Moderate per lpf (None-Few) H 04/07/18 16:57 Fluid Appearance Slightly Hazy (Clear) A 04/10/18 11:10 Pleural Appearance Hazy (Clear) A 04/10/18 11:10 Pleural RBC 0.031 M/mcL (0.000-0.002) H 04/10/18 11:10 Vancomycin Trough 14 mcg/mL (5-10) H 04/09/18 19:00 - Microbiology Findings Microbiology Findings: Microbiology, Last 48 Hours 04/10/18 11:10 Body Fluid Culture - Preliminary Pleural Fluid - Clinical Findings Intake & Output: Intake & Output 04/10/18 04/11/18 04/11/18 23:59 07:59 15:59 Intake Total 740 / 740 100 / 100 120 / 120 Output Total 430 / 430 Balance 310 / 310 100 / 100 120 / 120 Weight 115.2 kg Consult Discharge Plan - Plan Referrals: Evelyn Polo CNP [Advanced Practice Nurse] - 04/17/18 9:30 am Prescriptions: levoFLOXacin [Levaquin] 750 mg PO DAILY #5 tablet Mirtazapine [Remeron] 15 mg PO HS #30 tablet predniSONE [PredniSONE] 60 mg PO DAILY #30 tablet - Attending Attestation I examined this patient and my medical decision-making was reviewed with the Resident Physician. I agree with the documented findings, disposition and treatment plan as described except to the extent set forth below. Patient seen and examined. Labs, radiology, chart personally reviewed. Agree with resident's history and physical, assessment, plan with following comments: GREASE AND TALLOW PUMPER: Patient follows commands, Pulmonary: Acceptable oxygenation and ventilation. Patient with exudative pleural effusion which is suspicious for metastatic malignant effusion, however other differential diagnosis would be parapneumonic effusion. Typically with very low pH would be suggestive of empyema or malignant effusion which I suspect that is the case reviewing his CAT scan of the chest. Fluid needs to be sent for cytology if not done already. I also explained to patient relates malignant most likely will come back and offered him Pleurx pleural catheter for palliative care and he understand if the effusion reaccumulated that is an option for him. Thank you for the consultation <Fracisco Zambrano - Last Filed: 04/11/18 13:50> Date of Encounter: 04/11/18 Time of Encounter: 10:31 Assessment and Plan (1) Bilateral pleural effusion Current Visit: Yes Status: Acute CT on 04/07 revealed bilateral pleural effusions Bilateral Thoracentesis performed on 04/10 - 1.5L fluid removed from left - 0.5L fluid removed from right Pleural fluid analysis revealed pH of 6.4 which typically represents empyema vs malignant effusion With this patient's clinical picture and hx of esophageal cancer, likely malignant effusion Recommend follow up CXR in 2-3 weeks Pt can follow up with us in clinic if he wishes for Pleurex catheter for recurrent effusions History of Present Illness Consult date: 04/11/18 Reason for consult: dyspnea, pleural effusion Chief complaint: Shortness of breath History of present illness: Mr. Aranda is a 72M with PMH of esophageal cancer being treated palliatively, DM, MLD, and HTN who presented to the ER on 04/04 with shortness of breath and chest pain. Chest CT on 04/07 revealed small innumerable pulmonary nodules bilaterally consistent with metastases, and bilateral pleural effusions malignant vs infectious. Pt denied any fever, chills, or increased sputum production. Bilateral thoracentesis were performed on 04/10 and pleural fluid was found to be acidotic with pH of 6.4. During the encounter with this provider pt stated he was feeling much better. States SOB has been improving since thoracentesi yesterday, and is currently not short of breath. States his cough has decreased as well. Denies any sputum production or hemoptysis. Denies any fever, chills, chest pain, headache, numbness, tingling, weakness, nausea, or vomiting. 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 Psychiatric history: anxiety, PTSD - Past Surgical History Surgical History: cataract, orthopedic, other, other Additional surgical history: shoulder, bowel - Social History Smoking Status: Never smoker Smokeless Tobacco Status: No Alcohol use: none Drug use: none - Family History Mother Living Status: Hx Family Cancer: No Father Living Status: Hx Family Cancer: No All Systems: The remainder of the systems were reviewed and are negative - Constitutional Constitutional: no chills, no fever(s), no headache(s), no weakness - Cardiovascular Cardiovascular: chest pain, dyspnea, no lightheadedness, no pedal edema - Respiratory Respiratory: cough, dyspnea - Gastrointestinal Gastrointestinal: no abdominal pain, no nausea, no vomiting - Musculoskeletal Musculoskeletal: no weakness, no numbness, no stiffness - Neurological Neurological: no confusion, no dizziness, no numbness, no tingling, no weakness Physical Examination Vital Signs: Vital Signs, Last 4 Hours Pulse Resp BP Pulse Ox 04/11/18 06:51 56 16 161/75 100 General appearance: no acute distress Eyes: nonicteric ENT: oropharynx moist Neck: supple, no lymphadenopathy, no JVD Effort: normal Inspection: normal Auscultation: bilateral: clear Percussion: bilateral: not dull Tactile fremitus: bilateral: normal Cardiovascular: regular rate and rhythm Gastrointestinal: soft, non-tender, non-distended Integumentary: normal Extremities: no cyanosis, no edema, no clubbing Musculoskeletal: no deformities normal mental status, non-focal exam mood appropriate, affect normal Results - Laboratory Findings CBC and BMP: 04/11/18 04:05 04/10/18 04:15 ABG ABG pH 7.43 pH Units (7.32-7.45) 04/08/18 21:32 ABG pCO2 41 mmHg (35-45) 04/08/18 21:32 ABG pO2 69 mmHg (85-104) L 04/08/18 21:32 ABG O2 Saturation 94 % (95-98) L 04/08/18 21:32 PT/INR, D-dimer PT 12.3 Seconds (9.4-12.1) H 04/08/18 01:23 Abnormal lab findings: Abnormal lab results WBC 12.7 K/mcL (4.3-11.1) H D 04/11/18 04:05 RBC 3.94 M/mcL (4.19-5.50) L 04/11/18 04:05 Hgb 11.5 g/dL (12.9-16.9) L 04/11/18 04:05 Hct 33.6 % (37.5-50.1) L 04/11/18 04:05 Neutrophils # 10.1 K/mcL (1.6-8.9) H 04/11/18 04:05 Monocytes # 1.4 K/mcL (0.0-1.3) H 04/11/18 04:05 PT 12.3 Seconds (9.4-12.1) H 04/08/18 01:23 ABG pO2 69 mmHg (85-104) L 04/08/18 21:32 ABG Total CO2 28 mEq/L (20-26) H 04/08/18 21:32 ABG O2 Saturation 94 % (95-98) L 04/08/18 21:32 Sodium 134 mEq/L (136-145) L 04/10/18 04:15 Glucose 186 mg/dL (70-105) H 04/10/18 04:15 POC Glucose 389 mg/dL (70-99) H 04/10/18 20:34 AST 11 Units/L (13-39) L 04/08/18 01:23 Alkaline Phosphatase 119 Units/L (34-104) H 04/08/18 01:23 Lactate Dehydrogenase 131 Units/L (140-271) L 04/11/18 07:38 Serum Total Protein 5.7 g/dL (6.4-8.9) L 04/08/18 01:23 Albumin 3.0 g/dL (3.5-5.7) L 04/08/18 01:23 Ur Specific Blanchard 1.026 (1.010-1.025) H 04/07/18 16:57 Urine Protein >=300 mg/dL (Neg-Trace) H 04/07/18 16:57 Urine Glucose (UA) >=1000 mg/dL (Normal) H 04/07/18 16:57 Urine Ketones Trace mg/dL (Negative) H 04/07/18 16:57 Urine Bilirubin Small (Negative) H 04/07/18 16:57 Urine Microscopic RBC 5-15 per hpf (0-3) H 04/07/18 16:57 Urine Microscopic WBC 15-30 per hpf (0-3) H 04/07/18 16:57 Ur Squamous Epith Cells Many per lpf (None-Few) H 04/07/18 16:57 Hyaline Casts Moderate per lpf (None-Few) H 04/07/18 16:57 Fluid Appearance Slightly Hazy (Clear) A 04/10/18 11:10 Pleural Appearance Hazy (Clear) A 04/10/18 11:10 Pleural RBC 0.031 M/mcL (0.000-0.002) H 04/10/18 11:10 Vancomycin Trough 14 mcg/mL (5-10) H 04/09/18 19:00 - Microbiology Findings Microbiology Findings: Microbiology, Last 48 Hours 04/10/18 11:10 Body Fluid Culture - Preliminary Pleural Fluid - Diagnostic Findings Chest x-ray: report reviewed, image reviewed CT scan - chest: report reviewed, image reviewed - Clinical Findings Intake & Output: Intake & Output 04/10/18 04/11/18 04/11/18 23:59 07:59 15:59 Intake Total 740 / 740 100 / 100 120 / 120 Output Total 430 / 430 Balance 310 / 310 100 / 100 120 / 120 Weight 115.2 kg
[2018-04-11 10:55] VITALS: BP 148/66
--- NOTE | 2018-04-11 13:41 | Discharge Summary ---
Orders not resulted at time of discharge: Pending orders 04/09/18 18:00 Procalcitonin Routine 04/10/18 08:28 Cytology [PTH] Routine 04/10/18 11:10 Culture,Body Fluid [RM] Routine Culture,Body Fluid [RM] Routine 04/11/18 04:05 BMP [Basic Metabolic Panel] AM 0400 Magnesium AM 0400 Phosphorous AM 0400 04/12/18 04:00 CBC [Complete Blood Count] [HEME] AM 0400 Magnesium AM 0400 Phosphorous AM 0400 04/13/18 04:00 CBC [Complete Blood Count] [HEME] AM 0400 Magnesium AM 0400 Phosphorous AM 0400 04/14/18 04:00 CBC [Complete Blood Count] [HEME] AM 0400 Magnesium AM 0400 Phosphorous AM 0400 04/15/18 04:00 CBC [Complete Blood Count] [HEME] AM 0400 Magnesium AM 0400 Phosphorous AM 0400 Date of Encounter: 04/11/18 Time of Encounter: 12:00 - Discharge Diagnosis (1) Multifocal pneumonia Priority: Primary Status: Acute Assessment and Plan: 72 year old male with pmh of esophageal cancer who presented to the ER from a road trip from [facility]. He had been experiencing some shortness of breath and chest pain over the last 2-3 days. According to his and grandson, he had been bedridden with minimal activity the last few days. Additionally, he had been on a long road trip to and from [facility] over the last week. He has an underlying history of esophageal cancer with presumed lung metastases. He developed some chest pain which was sharp in nature. He also had some dyspnea and dry cough. He was returning home with his desmond and they came directly to the ER for evaluation and admission. Workup in ER included CT scan of the chest, which revealed worsening pulmonary metastases and ground glass opacities concerning for pneumonia. He was started on antibiotics and oxygen and admitted to the hospitalist service. He was started on broad spectrum antibiotics with vanc and zosyn for multifocal pneumonia. He was also noted to have bilateral pleural effusions on CT chest which was thought possibly secondary to CHF vs parapneumonic vs malignanant pleural effusion. A 2D echo was done showing patient has a normal EF. An IR guided thoracentesis was obtained to further characterize the effusions on . 1.5L was removed from the left lung and 500ml was drained from the right lung. Pleural fluid studies were consistent with an exudative effusion likely malignancy related due to the very low pH. He was seen by pulmonary who recommended he could follow up outpatient for a follow up xray in 2-3 weeks and a pluerx cath if the effusion returns. He will complete a course of levaquin outpatient for his multifocal pneumonia which had improved at the time of discharge. He was also seen by oncology due to the fact that he's undergoing chemotherapy and radiation for his esophageal cancer. He was started on prednisone 60mg daily for possible radiatin pneumonitis. This medication was continued on discharge and he will follow up outpatient with oncology. 35 minutes was spent discharging this patient (2) Esophageal cancer Priority: Primary Status: Chronic Qualifiers: Malignant neoplasm of esophagus location: unspecified location Qualified Code(s): C15.9 - Malignant neoplasm of esophagus, unspecified (3) Chest pain Priority: Secondary Status: Acute Qualifiers: Chest pain type: pleurodynia Qualified Code(s): R07.81 - Pleurodynia (4) IDDM (insulin dependent diabetes mellitus) Priority: Secondary Status: Chronic (5) DVT prophylaxis Priority: Secondary Status: Acute Hospital course: Mr. Aranda is a 72 year old male - Time Spent with Patient Total time spent providing and/or coordinating discharge services: - Discharge Medications Prescriptions: levoFLOXacin [Levaquin] 750 mg PO DAILY #5 tablet Mirtazapine [Remeron] 15 mg PO HS #30 tablet predniSONE [PredniSONE] 60 mg PO DAILY #30 tablet Home Medications: Allopurinol [Zyloprim] 100 mg PO DAILY 05/11/16 [History] Aspirin 81 mg PO DAILY 05/11/16 [History] Insulin ASPART [NovoLOG] 20 unit SQ TID 05/11/16 [History] Pravastatin Sodium [Pravachol] 80 mg PO HS 05/11/16 [History] Lisinopril [Zestril] 40 mg PO DAILY 05/09/17 [History] Cetirizine HCl [All Day Allergy] 10 mg PO DAILY 09/16/17 [History] Cholecalciferol (D-3) [Vitamin D] 1,000 unit PO DAILY 09/30/17 [History] Labetalol HCl 300 mg PO BID 09/30/17 [History] Insulin Glargine,Hum.rec.anlog [Lantus Solostar] 75 unit SQ HS #5 insuln.pen [Rx] Citalopram Hydrobromide [Citalopram HBr] 10 mg PO DAILY #30 tablet 12/27/17 [Rx] Sucralfate [Carafate] 1 gm PO QID #120 tablet 01/29/18 [Rx] Mirtazapine [Remeron] 15 mg PO HS #30 tablet 04/11/18 [Rx] levoFLOXacin [Levaquin] 750 mg PO DAILY #5 tablet 04/11/18 [Rx] predniSONE [PredniSONE] 60 mg PO DAILY #30 tablet 04/11/18 [Rx] Allergies/Adverse Reactions: 3 Allergy/AdvReac Type Severity Reaction Status Date / Time No Known Allergies Allergy Verified 11/15/17 09:49 Date of admission: 04/08/18 11:59 Primary care physician: Sally Johnson MD Consults: 04/08/18 21:12 Consult to Respiratory Therapy [CONS] Stat Reason for Consult: SOB Time Notified: 21:12 Call Completed: No 04/10/18 08:14 Consult to Physical Therapy [CONS] Routine Comment: Evaluate, develop and implement POC Reason for Consult: weakness Does patient have active BEDREST order?: No Is patient medically & hemodynamically stable?: Yes Patient assessed for mobility or mobilized this visit?: No 04/11/18 07:47 Consult to Pulmonology [CONS] Routine Consulting Provider: [facility] Reason for Consult: multifocal pneumonia with pleural fluid showing low ph Call Completed: Yes 04/11/18 11:36 Consult to Occupational Therapy [CONS] Routine Comment: Evaluate, develop and implement POC Reason for Consult: Significant weakness at home; assess for rehab vs HH Does patient have active BEDREST order?: No Is patient medically & hemodynamically stable?: Yes - Constitutional Vitals: Temp Pulse Resp BP Pulse Ox 97.4 F L 59 16 148/66 94 04/11/18 10:50 04/11/18 10:50 04/11/18 10:50 04/11/18 10:50 04/11/18 10:50 General appearance: Present: cooperative, A&O X 3, pleasant, answers questions appropriately Exam: Gen - Awake, alert, oriented x 3, no acute distress HEENT - NCAT, PERRLA, EOMI, hearing grossly intact, oropharynx benign CV - RRR, normal S1 and S2, no M/R/G, no BLE edema Resp - Normal WOB, CTAB, no W/R/R GI - Soft, NT/ND, no masses, normal bowel sounds Skin - Warm, dry, no rashes/lesions/ulcers Psych - Normal mood and affect, no depression or anxiety - Head Head exam: Present: atraumatic, normocephalic - Eye Eye exam: Present: PERRL, conjuntiva pink, sclera anicteric Pupils: Present: PERRL - Neck Neck exam general surgery: Present: supple, trachea midline. Absent: lymphadenopathy - Respiratory Respiratory exam: Present: CTAB. Absent: accessory muscle use, rales, rhonchi, wheezes - Cardiovascular Cardiovascular exam: Present: RRR, +S1, +S2. Absent: diastolic murmur, gallop, rubs, systolic murmur - GI/Abdominal GI/Abdominal exam: Present: normal bowel sounds, soft, no peritoneal signs. Absent: distended, tenderness - Extremities Exam Extremities exam: Present: warm, radial pulses palpable and symmetrical. Absent : calf tenderness, cyanotic, pedal edema - Neurological Exam Neurological exam: Present: CN II-XII intact, oriented X3, no focal deficits. Absent: pronater drift, facial droop, speech deficit - Skin Skin exam: Present: dry, intact - Patient Status Disposition: Home, Self-Care Condition: Good - Discharge Instructions Instructions: Pneumonia (DC) Follow Up With: Alex Buckley MD [Partnered Physician] - (sent a web request the office should call patient at home with appointment date and time) Evelyn Polo CNP [Advanced Practice Nurse] - 04/17/18 9:30 am
--- NOTE | 2018-04-11 14:05 | Physician Discharge Referral ---
Home Health/Hosp Referral Info Transfer to: Home Health - Diagnosis (1) Multifocal pneumonia Priority: Primary Status: Acute (2) Esophageal cancer Priority: Secondary Status: Chronic (3) Chest pain Priority: Secondary Status: Acute (4) IDDM (insulin dependent diabetes mellitus) Priority: Secondary Status: Chronic (5) DVT prophylaxis Priority: Secondary Status: Acute - Respiratory Orders Smoking Cessation: Smoking cessation has been advised. For more information, call the [place] Tobacco Quit Line at 2-208-WEBV-NOW. - Services Needed Following services are medically necessary services: Nursing, Home Health Aide, Physical Therapy - Transfer Medications Prescriptions: levoFLOXacin [Levaquin] 750 mg PO DAILY #5 tablet Mirtazapine [Remeron] 15 mg PO HS #30 tablet predniSONE [PredniSONE] 60 mg PO DAILY #30 tablet Home Medications: Allopurinol [Zyloprim] 100 mg PO DAILY 05/11/16 [History] Aspirin 81 mg PO DAILY 05/11/16 [History] Insulin ASPART [NovoLOG] 20 unit SQ TID 05/11/16 [History] Pravastatin Sodium [Pravachol] 80 mg PO HS 05/11/16 [History] Lisinopril [Zestril] 40 mg PO DAILY 05/09/17 [History] Cetirizine HCl [All Day Allergy] 10 mg PO DAILY 09/16/17 [History] Cholecalciferol (D-3) [Vitamin D] 1,000 unit PO DAILY 09/30/17 [History] Labetalol HCl 300 mg PO BID 09/30/17 [History] Insulin Glargine,Hum.rec.anlog [Lantus Solostar] 75 unit SQ HS #5 insuln.pen [Rx] Citalopram Hydrobromide [Citalopram HBr] 10 mg PO DAILY #30 tablet 12/27/17 [Rx] Sucralfate [Carafate] 1 gm PO QID #120 tablet 01/29/18 [Rx] Mirtazapine [Remeron] 15 mg PO HS #30 tablet 04/11/18 [Rx] levoFLOXacin [Levaquin] 750 mg PO DAILY #5 tablet 04/11/18 [Rx] predniSONE [PredniSONE] 60 mg PO DAILY #30 tablet 04/11/18 [Rx] Allergies/Adverse Reactions: 3 Allergy/AdvReac Type Severity Reaction Status Date / Time No Known Allergies Allergy Verified 11/15/17 09:49 Certification: Further, I certify that my clinical findings support that this patient is homebound (i.e. absences from home require considerable and taxing effort and are for medical reasons or restoration services or infrequently or short duration when for other reasons) because: Homebound Reason: Patient requires assistance of a person or device to safely leave home Attestation: My signature below is to certify that this patient is under my care and that I, or nurse practitioner, or a physician's team assistant working with me, has a face-to -face encounter with this patient.
[2018-04-11] MEDS ORDERED: Aminoglycoside Consult 1 EACH MC ONE (15:05)
== END 2018-04-11 15:06 | disposition home or self-care (01) | DRG 194 ==
LOC: 3ANU 15:39 → EMEROOARM 15:39 → SUATTDRO 19:58 → 3ANU 21:37 → 2NENU 04-08 19:49
PROVIDERS: ADMIT Pediatrics; ATTEND Student in an Organized Health Care Education/Training Program